=== PATIENT | male | born 1960 | race African-American/Black ===

== ENCOUNTER 2017-09-19 17:33 | Inpatient (IN) | payer OTHER ==
[2017-09-19 18:27] LABS: #Lymphocytes 1.2 thou/uL (1.20-3.40); #Monocytes 0.7 thou/uL (0.11-0.59); #Neutrophils 4.5 thou/uL (1.40-6.50); %Basophils 0.3 % (0.0-1.0); %Eosinophils 0.2 % (0.0-10.0); %Monocytes 10.9 % (0.0-10.0); %Neutrophils 69.6 % (42.0-75.0); Hemoglobin 16.1 g/dL (14.0-18.0); Mean Corpuscular HGB CONC 31.7 g/dL (32.0-36.0); Mean Platelet Volume 7.6 fL (7.4-10.4); Platelet Count 173 thou/uL (130-400); Red Blood Cell (RBC) Count 5.03 mill/uL (4.70-6.10); White Blood Cell (WBC) Count 6.4 thou/uL (4.8-10.8)
[2017-09-19 18:56] LABS: ALT (SGPT) 11 U/L (8-55); AST (SGOT) 23 U/L (5-34); Albumin 3.1 g/dL (3.5-5.0); Alkaline Phosphatase 50 U/L (40-150); Anion Gap 11 mmol/L (10-20); BUN (Urea Nitrogen) 13 mg/dL (8.4-25.7); Bilirubin, Total 0.2 mg/dL (0.2-1.2); CK (CPK) 94 U/L (30-200); Calc. Creatinine Clearance 0 mL/min (70-130); Calcium 7.9 mg/dL (7.8-10.44); Carbon Dioxide 23 mmol/L (22-29); Chloride 101 mmol/L (98-107); Estimated GFR-MDRD Greater than 90; Glucose 93 mg/dL (70-105); Potassium 3.8 mmol/L (3.5-5.1); Protein, Total 6.1 g/dL (6.0-8.3); Sodium 131 mmol/L (136-145)
[2017-09-19 19:00] LABS: CKMB 0.5 ng/mL (0-6.6); Troponin I 0.033 ng/mL (< 0.028)
--- NOTE | 2017-09-19 20:09 | RAD ---
CHEST ONE VIEW 09/09/17 HISTORY: Chest pain. Dyspnea. COMPARISON: 07/02/13. FINDINGS: Cardiac silhouette is upper limits of normal in size. Pulmonary vasculature is also upper limits of n ormal. Reticulonodular interstitial prominence is more pronounced at the bases than in the upper lobe s. No evidence of pneumothorax or lobar consolidation. IMPRESSION: Coarsened interstitial pattern, reticulonodular, more pronounced at the lung bases. Findings are nons pecific and could represent an atypical infectious process, chronic inflammation, or fibrotic lung di sease of the lung bases. POS: [facility]
[2017-09-19] MEDS ORDERED: methylPREDNISolone Sod Succ/PF 125 MG/2 ML VIAL ONE (20:34)
[2017-09-19 20:53] LABS: Bilirubin Negative (Negative); Blood, Urine Negative (Negative); Clarity CLEAR (Clear); Glucose, Urine (Dipstick) Negative (Negative); Leukocyte Negative (Negative); Nitrite Negative (Negative); Protein, Urine (Dipstick) Negative (Neg-Trace)
--- NOTE | 2017-09-19 20:55 | CT ---
CT CHEST WITH IV CONTRAST: 09/09/17 HISTORY: Cough. Chest pain. FINDINGS: Airway is patent. No lobar consolidation. Lungs are hyperinflated with scattered areas of parenchymal scarring. No evidence of central pulmonary embolus. Calcifications present within the arterial struc tures. There is bovine origin of the great vessels from the aortic arch. Nodule at the right lateral costophrenic angle is 0.4 cm. A 0.8 cm nodule is present within the superior segment right lower lobe . A 0.5 cm nodule is present within the medial segment right middle lobe. Left lower lobe nodules shravan sure up to 0.6 cm. No pleural fluid, pneumothorax, or mediastinal adenopathy. IMPRESSION: 1. COPD. 2. Small bilateral parenchymal nodules as detailed above. Please consider CT chest in 6 months t o evaluate for stability. 3. Atherosclerosis. POS: [facility]
[2017-09-19] MEDS ORDERED: Acetaminophen 325 MG TAB PO PRN (21:39)
[2017-09-19] MEDS ORDERED: Ondansetron ODT 4 MG TAB SL PRN (21:39)
[2017-09-19] MEDS ORDERED: Ondansetron HCl/PF 4 MG/2 ML Vial IVP PRN (21:39)
[2017-09-19 21:44] VITALS: BMI 24.7
[2017-09-19 22:09] LABS: Troponin I 0.035 ng/mL (< 0.028)
[2017-09-20 00:46] LABS: Troponin I 0.033 ng/mL (< 0.028)
[2017-09-20] MEDS ORDERED: FLU VACC QS2017-18 36 mo. & older 0.5 ML SYRINGE IM ONE (09:00)
[2017-09-20] MEDS ORDERED: Meloxicam 15 MG TAB PO SCH (09:15)
[2017-09-20] MEDS ORDERED: Oseltamivir 75 MG CAP PO SCH (09:15)
[2017-09-20] MEDS: Meloxicam 15 MG TAB PO SCH (09:33)
[2017-09-20] MEDS: traMADol HCl 50 MG TAB PO PRN ×2 (09:33→16:30)
[2017-09-20] MEDS: Sodium Chloride 0.9% 1,000 ML IV SCH ×2 (09:35→22:59)
[2017-09-20] MEDS ORDERED: Guaifenesin DM 100-10/5 ML UDCUP PO PRN (13:53)
[2017-09-20] MEDS: Temazepam 15 MG CAP PO SCH (20:51)
[2017-09-20] MEDS: Oseltamivir 75 MG CAP PO SCH (20:51)
--- NOTE | 2017-09-21 06:49 | HP ---
DATE OF ADMISSION: 09/19/2017 REASON FOR ADMISSION AND CHIEF COMPLAINT: Cough, shortness of breath, fever, right-sided chest pain. HISTORY OF PRESENT ILLNESS: Mr. Prado is a 57-year-old -[place] male with past medical hist ory of chronic back pain, came because of fever and also shortness of breath and cough, going on for the last 2 to 3 days. The patient also has a sharp pain in the right side of the chest, not associat ed with any diaphoresis, no nausea or vomiting. The patient does have cough productive of yellow spu luna and temperature of 101 at home. The patient came to the ER where he was evaluated and found to h ave influenza B infection and also evidence of bronchitis. The patient received DuoNeb treatments an d Solu-Medrol, Levaquin, aspirin, and IV fluids. His troponin was indeterminate. PAST MEDICAL HISTORY: Chronic back pain, shoulder pain, insomnia. PAST SURGICAL HISTORY: Nothing significant. CURRENT MEDICATIONS: The patient is on tramadol 50 q.i.d. p.r.n., Restoril 15 mg at bedtime p.r.n. ALLERGIES: No known drug allergies. FAMILY HISTORY: Nothing of interest. SOCIAL HISTORY: The patient lives alone. No history of alcohol. He smokes 1 pack a day and has bee n smoking for many years. REVIEW OF SYSTEMS: Cardiovascular: Has right-sided chest pain with shortness of breath. Respirator y: Has cough and fever. Gastrointestinal: No nausea, vomiting, no abdominal pain. Genitourinary: No dysuria. Central nervous system: No headache, no dizziness. PHYSICAL EXAMINATION: GENERAL: The patient is alert, awake, oriented x3. VITAL SIGNS: Temperature 98, pulse 87, respirations 20, blood pressure 117/60. HEENT: Head is normocephalic, atraumatic. Pupils are equal and reactive to light. Nasopharynx is p ink and moist. NECK: Supple. No JVD. LUNGS: Breath sounds diminished bilaterally. Percussion not dull bilaterally. Rhonchi present bila terally. HEART: S1, S2 regular. ABDOMEN: Soft, no distention, no tenderness. Normal bowel sounds present. RECTAL: Deferred. CENTRAL NERVOUS SYSTEM: No focal deficit. LABORATORY DATA AND X-RAY FINDINGS: CBC shows WBC 6.4, hemoglobin 16, hematocrit 50, platelets 173. Metabolic panel: Sodium 130, potassium 3.8, chloride 101, CO2 of 23, urea nitrogen 13, creatinine 0 .77, glucose 93,, CK-MB 0.5, troponin I 0.033. Urinalysis negative. Chest x-ray shows coarsened int erstitial and reticular nodular pattern seen. CT angio chest revealed no evidence of pulmonary embol ism. It showed COPD changes seen with evidence of scarring. EKG shows normal sinus rhythm, no acute ST-T wave changes seen. ASSESSMENT: 1. Influenza B infection. 2. Bronchitis versus chronic obstructive pulmonary disease exacerbation. 3. Fever. 4. Multiple pulmonary nodules on CT scan. 5. Chronic pain. 6. Tobacco abuse. 7. Elevated troponin I, rule out myocardial infarction. PLAN: 1. Vital signs q.4 hours. 2. Activity as tolerated. 3. Allergies: NKDA. 4. IV fluids normal saline at 70 mL per hour. 5. Solu-Medrol 20 IVP q.6 hours. 6. Levaquin 750 daily IV piggyback. 7. DuoNebs q.i.d. 8. Tamiflu 75 b.i.d. 9. Continue home medications.
[2017-09-21] MEDS: Oseltamivir 75 MG CAP PO SCH ×2 (09:42→20:25)
[2017-09-21] MEDS: Meloxicam 15 MG TAB PO SCH (09:42)
[2017-09-21] MEDS: traMADol HCl 50 MG TAB PO PRN (16:34)
[2017-09-21] MEDS: Sodium Chloride 0.9% 1,000 ML IV SCH (20:04)
[2017-09-21] MEDS: Temazepam 15 MG CAP PO SCH (20:25)
[2017-09-22] MEDS: Sodium Chloride 0.9% 1,000 ML IV SCH ×2 (05:04→17:30)
[2017-09-22] MEDS: Meloxicam 15 MG TAB PO SCH (08:08)
[2017-09-22] MEDS: Oseltamivir 75 MG CAP PO SCH ×2 (08:08→21:11)
--- NOTE | 2017-09-22 11:37 | CT ---
CT THORAX WITH CONTRAST: DATE: 09/22/17. TIME: 8:54 a.m. HISTORY: A 57-year-old male with chest pain, cough, and dyspnea. Emphysema. COMPARISON: Chest CT of 09/19/17. TECHNIQUE: IV iodinated contrast media: 100 mL of Isovue 370. FINDINGS: The images of the lower lobes are now degraded by breathing motion artifact. Again noted are the sev eral noncalcified pulmonary nodules bilaterally, right more than left. There has been no significant interval change. No consolidation. IMPRESSION: 1. Several noncalcified pulmonary nodules, right more than left. As previously stated, 6-month-old followup chest CT is recommended. 2. Moderate emphysema. 3. Coronary atherosclerotic disease. 4. No interval change overall compared to 3 days ago. MERARI Arizmendi POS: [facility]
[2017-09-22] MEDS: Temazepam 15 MG CAP PO SCH (21:12)
[2017-09-23] MEDS: Sodium Chloride 0.9% 1,000 ML IV SCH (09:18)
[2017-09-23] MEDS: Meloxicam 15 MG TAB PO SCH (09:23)
[2017-09-23] MEDS: Oseltamivir 75 MG CAP PO SCH (09:23)
[2017-09-23 16:15] VITALS: BP 149/90; TEMP 98.2
[2017-09-24] MEDS ORDERED: predniSONE 20 MG TAB PO SCH (09:00)
--- NOTE | 2017-09-25 11:05 | DIS ---
DATE OF ADMISSION: 09/19/2017 DATE OF DISCHARGE: 09/23/2017 ADMITTING DIAGNOSES: 1. Influenza B infection. 2. Bronchitis versus chronic obstructive pulmonary disease exacerbation. 3. Fever. 4. Multiple pulmonary nodules on CT scan. 5. Chronic pain. 6. Tobacco abuse. 7. Elevated troponin I, rule out myocardial infarction. FINAL DIAGNOSES: 1. Influenza B infection, treated. 2. Chronic obstructive pulmonary disease, improved. 3. Fever, resolved. 4. Multiple pulmonary nodules, possibly benign, stable. 5. Chronic pain. 6. Tobacco abuse. 7. Elevated troponin. No evidence of acute myocardial infarction. BRIEF SUMMARY OF HOSPITAL COURSE: Mr. Prado is a 57-year-old -Canadian male with past medica l history of chronic back pain, came because of high fever. The patient was found to have influenza B positive and also has chest wheezing with history of COPD exacerbation. He was started on IV Solu- Medrol, DuoNebs and IV antibiotic with Levaquin, Tamiflu was continued. In the next couple of days, the patient's shortness of breath improved. Fever resolved. His cough became much better. His CT c hest without contrast showed some nodules and CT of the chest done with contrast showed pulmonary nod ules, most likely benign. Repeat CT chest in 6 months for followup. In view of improvement, the [facility] ie is being discharged. At the time of discharge, he was stable. His vital signs were stable. Alma ngs clear. Abdomen: Soft, nontender. Bowel sounds present. DISCHARGE MEDICATIONS: Tramadol 50 q.i.d. p.r.n., Restoril 15 mg at bedtime, prednisone in tapering doses, Ventolin inhaler 2 puffs q.i.d., Maalox 15 mg daily, Levaquin 750 daily for 10 or 5 days, Angela flu b.i.d. for 2 days. The patient will come for followup in 2 weeks. The patient will have PFTs done as an outpatient.
== END 2017-09-23 16:30 | disposition home or self-care (01) | DRG 194 ==
LOC: ERS 17:33 → 2NO 19:55
PROVIDERS: ADMIT Internal Medicine; ATTEND Internal Medicine
DX: J10.1 Influenza due to other identified influenza virus with other respiratory manifestations (principal); J44.1 Chronic obstructive pulmonary disease with (acute) exacerbation; F17.210 Nicotine dependence, cigarettes, uncomplicated; R91.8 Other nonspecific abnormal finding of lung field; G89.29 Other chronic pain
CPT/HCPCS: 36415; 71045; 71260; 80053; 81003; 82553; 84145; 84484; 85025; 87040; 93005; 94640; 94760; 96361; 96365; 96375; A4216; J1956; J2920; J2930; J7620

== ENCOUNTER 2017-11-28 09:08 | Outpatient (CLI) | payer OTHER ==
--- NOTE | 2017-11-28 10:51 | RAD ---
3 VIEWS RIGHT SHOULDER: Date: 11/28/17 HISTORY: Right shoulder pain. FINDINGS: There is no evidence of a fracture or dislocation. There is a rounded osseous density seen inferior t o the distal clavicle. This was also present on prior chest x-ray in 2012. Recent CT scan examination demonstrates a corticated osseous density in this region as well, incompletely imaged or evaluated. I am unsure if this is related to small osseous excrescence arising from the distal clavicle or relat ed to a separate osseous density. There is mild right acromioclavicular joint osteoarthritis with irr egularity of the acromion. IMPRESSION: 1. No acute osseous abnormality of the right shoulder. 2. Mild right acromioclavicular joint osteoarthritis. 3. Stable osseous density seen inferior to the distal clavicle. This may be related to small osseous excrescence at the distal clavicle. There is mild irregularity involving the acromion as well. Findi ngs could be related to prior injury involving the acromioclavicular joint, but there is no acromiocl avicular joint separation present. POS: [facility]
== END 2017-11-28 09:09 | disposition home or self-care (01) ==
LOC: RAD-FRANK 09:08
PROVIDERS: ATTEND Internal Medicine
DX: M25.511 Pain in right shoulder (principal); M89.9 Disorder of bone, unspecified; M19.011 Primary osteoarthritis, right shoulder

== ENCOUNTER 2018-03-07 11:06 | Inpatient (IN) | payer OTHER ==
[2018-03-07 11:43] LABS: Hemoglobin 16.1 g/dL (14.0-18.0); Mean Corpuscular HGB CONC 33.9 g/dL (32.0-36.0); Mean Corpuscular Hemoglobin 33.3 pg (27.0-31.0); Mean Corpuscular Volume 98.2 fL (78.0-98.0); Mean Platelet Volume 7.3 fL (7.4-10.4); Platelet Count 266 thou/uL (130-400); RBC Distribution Width 13.1 % (11.5-14.5); Red Blood Cell (RBC) Count 4.83 mill/uL (4.70-6.10); White Blood Cell (WBC) Count 11.6 thou/uL (4.8-10.8)
[2018-03-07] MEDS ORDERED: cefTRIAXone\\ROCEPHIN 1 GM VIAL ONE (12:00)
[2018-03-07 12:09] LABS: ALT (SGPT) 12 U/L (8-55); AST (SGOT) 16 U/L (5-34); Albumin 3.4 g/dL (3.5-5.0); Alkaline Phosphatase 60 U/L (40-150); Anion Gap 15 mmol/L (10-20); BUN (Urea Nitrogen) 12 mg/dL (8.4-25.7); Bilirubin, Total 0.9 mg/dL (0.2-1.2); Calc. Creatinine Clearance 0 mL/min (70-130); Calcium 8.7 mg/dL (7.8-10.44); Carbon Dioxide 20 mmol/L (22-29); Chloride 100 mmol/L (98-107); Estimated GFR-MDRD Greater than 90; Globulin 3.6 g/dL (2.4-3.5); Glucose 133 mg/dL (70-105); Potassium 3.6 mmol/L (3.5-5.1); Sodium 131 mmol/L (136-145)
[2018-03-07 12:11] LABS: Band 20 % (5-11); Lymphocytes 12 % (21-51); MDiff Complete? YES; Monocytes 4 % (0-10); Neutrophil 62 % (42-75); PLT Morphology Comment Appears Adequate; RBC Morphology Normal; Reactive Lymphocytes 2 % (0-10)
[2018-03-07] MEDS ORDERED: Azithromycin 500 MG VIAL ONE (12:36)
--- NOTE | 2018-03-07 12:43 | RAD ---
CHEST 1 VIEW: Date: 03/07/18 HISTORY: Dyspnea. COMPARISON: 09/19/17. FINDINGS: Cardiac silhouette magnified by projection. Pulmonary vasculature upper limits of normal. Patchy bila teral air space disease has developed. Otherwise, reticulonodular interstitial prominence throughout each lung is stable. No evidence of pneumothorax. media monitor leads overlie the chest. IMPRESSION: Bibasilar mild infiltrates. Cause not evident. Clinical correlation regarding other signs and symptom s of acute pneumonitis at each lung base is required. Please consider upright PA and lateral view fol low-up after medical treatment to evaluate for clearing. POS: [facility]
[2018-03-07 13:14] LABS: CKMB 0.5 ng/mL (0-6.6); Troponin I 0.013 ng/mL (< 0.028)
[2018-03-07 14:52] VITALS: BMI 24.1
[2018-03-07] MEDS ORDERED: traMADol HCl 50 MG TAB PO PRN (20:45)
[2018-03-07] MEDS: Temazepam 15 MG CAP PO SCH (21:34)
--- NOTE | 2018-03-08 03:26 | HP ---
DATE OF ADMISSION: 03/07/2018 REASON FOR ADMISSION AND CHIEF COMPLAINT: Shortness of breath and cough. HISTORY OF PRESENT ILLNESS: Mr. Prado is a 58-year-old -[place] male with past medical history of COPD and chronic back pain, who came in because of generalized weakness, not eating well, and cough and shortness of breath for a few days. All symptoms started 5 days ago. Cough is productive with yellow sputum, myalgias, and low-grade fever of 100.4. The patient also gets chest pain during coughing episodes. So, he called the EMS, because he was not breathing well, coughing, and not eating for a few days. EMS found him with COPD exacerbation. He received Solu-Medrol and DuoNeb treatments on the way to the hospital. In the ER, the patient was evaluated and found to have possible pneumonia bilaterally. The patient received a dose of Rocephin and azithromycin. The patient was admitted to the hospital for further evaluation and management. PAST MEDICAL HISTORY: 1. COPD. 2. Chronic back pain and chronic shoulder pain. 3. History of insomnia. PAST SURGICAL HISTORY: Nothing significant. CURRENT MEDICATIONS: Tramadol 50 q.i.d. p.r.n., Ventolin inhaler 2 puffs q.i.d. , and Restoril 15 at bedtime p.r.n. ALLERGIES: No known drug allergies. FAMILY HISTORY: Nothing of interest. SOCIAL HISTORY: The patient lives with family. No history of alcohol intake. He smokes 1 pack a day. REVIEW OF SYSTEMS: Cardiovascular: No chest pain. No shortness of breath. Respiratory: Denies cough or fever. Gastrointestinal: No nausea, vomiting, no abdominal pain. Genitourinary: No dysuria. Central nervous system: No headache, no dizziness. PHYSICAL EXAMINATION: GENERAL: The patient is alert, awake, and oriented x3. VITAL SIGNS: Temperature 97, pulse 78, respirations 20, blood pressure 116/80. HEENT: Head is normocephalic, atraumatic. Pupils are equal and reactive to light. Nasopharynx is pale and dry. Hard and soft palate, no lesions seen. SKIN: Turgor is decreased. NECK: Supple. No JVD. LUNGS: Breath sounds diminished bilaterally. Percussion not dull bilaterally. Expiratory wheeze present bilaterally. HEART: S1 and S2, regular. ABDOMEN: Soft, no distention, no tenderness. Normal bowel sounds present. RECTAL EXAM: Deferred. CENTRAL NERVOUS SYSTEM: No focal deficits. LABORATORY AND X-RAY FINDINGS: CBC shows WBC of 7.6, hemoglobin 16, hematocrit 47, platelets 266. Metabolic panel: Sodium 130, potassium 3.6, chloride 110, CO2 of 20, BUN 12, creatinine glucose 133, CK-MB 0.5, troponin I 0.013. Chest x-ray shows bibasilar infiltrates, possible pneumonitis versus pneumonia. EKG shows normal sinus rhythm, no acute ST-T-wave changes seen. ASSESSMENT: 1. Possible pneumonia. 2. Chronic obstructive pulmonary disease acute exacerbation. 3. Anorexia. 4. Pulmonary nodules. 5. Back pain. PLAN: 1. Vital signs q.4 hours. 2. Activity: As tolerated. 3. Allergies: NKDA. 4. DuoNeb q.i.d. 5. Rocephin 1 gram IV piggyback daily. 6. Zithromax 500 mg IV piggyback daily. 7. Continue home medication. 8. Solu-Medrol 20 IVP q.6 hours. MTDD
[2018-03-08] MEDS: guaiFENesin ER 600 MG TAB PO SCH ×2 (09:26→20:57)
[2018-03-08] MEDS: cefTRIAXone\\ROCEPHIN 1 GM in Sodium Chloride 0.9% 100 ML IVPB SCH (12:48)
[2018-03-08] MEDS: Azithromycin 500 MG in Sodium Chloride 0.9% 250 ML 250 ML IVPB SCH (14:55)
[2018-03-08] MEDS: Temazepam 15 MG CAP PO SCH (20:57)
[2018-03-09] MEDS: guaiFENesin ER 600 MG TAB PO SCH ×3 (07:52→21:01)
[2018-03-09] MEDS: cefTRIAXone\\ROCEPHIN 1 GM in Sodium Chloride 0.9% 100 ML IVPB SCH (12:43)
[2018-03-09 13:33] LABS: Hemoglobin 14.3 g/dL (14.0-18.0); Mean Corpuscular HGB CONC 32.4 g/dL (32.0-36.0); Mean Corpuscular Hemoglobin 32.2 pg (27.0-31.0); Mean Corpuscular Volume 99.2 fL (78.0-98.0); Mean Platelet Volume 7.3 fL (7.4-10.4); Platelet Count 344 thou/uL (130-400); Red Blood Cell (RBC) Count 4.45 mill/uL (4.70-6.10); White Blood Cell (WBC) Count 15.8 thou/uL (4.8-10.8)
[2018-03-09 13:48] LABS: Anion Gap 13 mmol/L (10-20); BUN (Urea Nitrogen) 16 mg/dL (8.4-25.7); Calc. Creatinine Clearance 116 mL/min (70-130); Calcium 9.2 mg/dL (7.8-10.44); Carbon Dioxide 24 mmol/L (22-29); Chloride 105 mmol/L (98-107); Estimated GFR-MDRD Greater than 90; Glucose 111 mg/dL (70-105); Potassium 4.4 mmol/L (3.5-5.1); Sodium 138 mmol/L (136-145)
--- NOTE | 2018-03-09 13:48 | PRG ---
DATE OF SERVICE: 03/09/2018 This is a cross coverage note. SUBJECTIVE: A 58-year-old gentleman being seen for pneumonia. Patient denies any nausea, vomiting o r chest pain, but still has a cough as well as heartburn-like symptoms. The patient denies chest arlene n, orthopnea or PND. Denies any swelling in his leg. MEDICATIONS: List reviewed. REVIEW OF SYSTEMS: Three point review of systems was performed and negative except all noted above. General: Weakness-. Head: Headache-. Neck: No swelling or lumps. Nose: No epistaxis or dischar ge. Eyes: No diplopia or pain. Respiratory: Dyspnea-. Cardiovascular: Chest pain-. Gastrointes tinal: Nausea-. Genitourinary/Gynecology: Hematuria-. Musculoskeletal: No joint pain. Neuropsyc hiatric Systems: No suicidal ideation. No ideation. Skin: Denies any rash or ulcer. Constitution al: No fever or chills. PHYSICAL EXAMINATION: GENERAL: Patient is awake, alert. VITAL SIGNS: Afebrile, pulse 90, breathing 16, blood pressure 112/75. GENERAL APPEARANCE AND MENTAL STATUS: Fair. HEAD/NECK: Normocephalic. Atraumatic. EYES: EOMI. No deformity. EARS: Clear. No ulcers. NOSE: Intact. No lesions. MOUTH: Clear. No discharge. THROAT: Clear. No exudate. LUNGS: Clear. No crackles. CARDIAC: S1, S2. No rub. ABDOMEN: Benign. BS+. GENITALIA/RECTUM: Foster absent. BACK/EXTREMITIES: Edema 0+ Ulcer- NEUROLOGICAL: Alert and motor intact. SKIN: Rash- Bruise- LYMPHATICS: Edema- Ulcer- LABORATORY DATA: Pending. ASSESSMENT AND PLAN: 1. Pneumonia. Continue ceftriaxone. 2. Hyponatremia, recheck labs. 3. Metabolic acidosis. Check labs. 4. Abnormal chest x-ray. Repeat chest x-ray PA and lateral. 5. Gastroesophageal reflux disease like symptoms. Start the patient on Nexium 40 mg daily. The patient will need pulmonary consultation. The patient will be covered the rest of the day by Dr. Snow.
[2018-03-09 13:52] LABS: Band 9 % (5-11); Lymphocytes 2 % (21-51); MDiff Complete? YES; Monocytes 4 % (0-10); Neutrophil 85 % (42-75); PLT Morphology Comment Appears Adequate
[2018-03-09] MEDS: Azithromycin 500 MG in Sodium Chloride 0.9% 250 ML 250 ML IVPB SCH (14:30)
--- NOTE | 2018-03-09 14:56 | RAD ---
2 VIEWS CHEST: Date: 03/09/18 HISTORY: Cough. FINDINGS: PA and lateral views of chest obtained. Mild areas of scarring seen in the right lung base. The lungs are well aerated. No evidence of acute intrathoracic abnormality seen. No evidence of effusions, pne umonia, or pneumothorax seen. IMPRESSION: Mild areas of right lower lobe atelectasis or scar. No other acute intrathoracic abnormality seen. POS: [facility]
[2018-03-09] MEDS: Temazepam 15 MG CAP PO SCH (20:59)
[2018-03-10] MEDS: guaiFENesin ER 600 MG TAB PO SCH ×2 (05:39→15:59)
[2018-03-10 08:07] VITALS: BP 125/78; TEMP 97.7
[2018-03-10] MEDS: cefTRIAXone\\ROCEPHIN 1 GM in Sodium Chloride 0.9% 100 ML IVPB SCH (11:58)
[2018-03-10] MEDS ORDERED: Amoxicillin/Potassium Clav 875 MG TAB PO SCH (21:00)
[2018-03-11] MEDS ORDERED: predniSONE 20 MG TAB PO SCH (09:00)
--- NOTE | 2018-03-11 15:35 | DIS ---
DATE OF ADMISSION: 03/07/2018 DATE OF DISCHARGE: 03/10/2018 ADMITTING DIAGNOSES: 1. Possible pneumonia. 2. Chronic obstructive pulmonary disease with acute exacerbation. 3. Anorexia. 4. Pulmonary nodules. 5. Back pain. FINAL DIAGNOSES: 1. No clear evidence of pneumonia. 2. Chronic obstructive pulmonary disease with acute exacerbation, improved. 3. Anorexia, improved. 4. Pulmonary nodules. 5. Chronic back pain. BRIEF SUMMARY OF HOSPITAL COURSE: Mr. Prado is a 58-year-old -[place] male admitted because of cough, congestion, shortness of breath, and not eating well. The patient was found to have COPD exacerbation, and initial chest x-ray was reported as pneumonitis and pneumonia. He was started on a ntibiotic with Rocephin and Zithromax. The patient was also started on Solu-Medrol and DuoNeb treatm ent. His shortness of breath improved. His cough became less. Chest wheezing resolved. A repeat c hest x-ray 2-view revealed mild areas of right lower lobe atelectasis versus scar. Otherwise, no oth er acute intrathoracic abnormalities seen. In view of improvement, the patient is discharged. At th e time of discharge, he was stable. His vital signs were stable. Lungs are clear. Heart sounds reg ular. Abdomen: Soft, nontender. Bowel sounds present. DISCHARGE MEDICATIONS: Include tramadol 50 q.i.d. p.r.n., temazepam 15 at bedtime, Ventolin inhaler 2 puffs q.i.d., Augmentin 875 b.i.d. for 1 week, Mucinex 600 b.i.d. for 1 week, omeprazole 40 mg william y, prednisone 40 mg daily and tapering dose. FOLLOWUP: He will come for followup in 2 weeks.
== END 2018-03-10 17:30 | disposition home or self-care (01) | DRG 190 ==
LOC: ERS 11:06 → T4-B 14:46
PROVIDERS: ADMIT Internal Medicine; ATTEND Internal Medicine
DX: J44.0 Chronic obstructive pulmonary disease with (acute) lower respiratory infection (principal); J18.9 Pneumonia, unspecified organism; E87.1 Hypo-osmolality and hyponatremia; E87.2 Acidosis; J44.1 Chronic obstructive pulmonary disease with (acute) exacerbation; G89.29 Other chronic pain; M54.9 Dorsalgia, unspecified; R63.0 Anorexia; K21.9 Gastro-esophageal reflux disease without esophagitis; R91.1 Solitary pulmonary nodule; Z79.51 Long term (current) use of inhaled steroids; Z79.899 Other long term (current) drug therapy
CPT/HCPCS: 36415; 71045; 71046; 80048; 80053; 82553; 83605; 84484; 85025; 87040; 90471; 90732; 93005; 94640; 94760; 96365; A4216; G0009; J0456; J0696; J2920; J7050; J7620

== ENCOUNTER 2018-03-28 09:07 | Inpatient (IN) | payer OTHER ==
[2018-03-28 09:42] LABS: #Basophils 0.1 thou/uL (0.0-0.2); #Eosinphils 0.4 thou/uL (0.0-0.7); #Lymphocytes 2.7 thou/uL (1.20-3.40); #Monocytes 0.7 thou/uL (0.11-0.59); #Neutrophils 5.8 thou/uL (1.40-6.50); %Basophils 0.9 % (0.0-1.0); %Eosinophils 4.1 % (0.0-10.0); %Lymphocytes 27.8 % (21.0-51.0); %Monocytes 7.5 % (0.0-10.0); %Neutrophils 59.7 % (42.0-75.0); Hemoglobin 15.3 g/dL (14.0-18.0); Mean Corpuscular HGB CONC 32.5 g/dL (32.0-36.0); Mean Corpuscular Hemoglobin 32.4 pg (27.0-31.0); Mean Corpuscular Volume 99.6 fL (78.0-98.0); Mean Platelet Volume 6.9 fL (7.4-10.4); Platelet Count 237 thou/uL (130-400); RBC Distribution Width 14.9 % (11.5-14.5); Red Blood Cell (RBC) Count 4.71 mill/uL (4.70-6.10); White Blood Cell (WBC) Count 9.8 thou/uL (4.8-10.8)
[2018-03-28 10:08] LABS: ALT (SGPT) 131 U/L (8-55); AST (SGOT) 86 U/L (5-34); Albumin 3.5 g/dL (3.5-5.0); Alkaline Phosphatase 80 U/L (40-150); Anion Gap 14 mmol/L (10-20); BUN (Urea Nitrogen) 17 mg/dL (8.4-25.7); Bilirubin, Total 1.3 mg/dL (0.2-1.2); Calc. Creatinine Clearance 0 mL/min (70-130); Calcium 8.6 mg/dL (7.8-10.44); Carbon Dioxide 22 mmol/L (22-29); Chloride 105 mmol/L (98-107); Estimated GFR-MDRD Greater than 90; Globulin 2.7 g/dL (2.4-3.5); Glucose 99 mg/dL (70-105); Lipase Less than 4 U/L (8-78); Magnesium 1.9 mg/dL (1.6-2.6); Potassium 3.9 mmol/L (3.5-5.1); Protein, Total 6.2 g/dL (6.0-8.3); Sodium 137 mmol/L (136-145)
[2018-03-28 10:13] LABS: CKMB 2.5 ng/mL (0-6.6); Troponin I 0.022 ng/mL (< 0.028)
[2018-03-28] MEDS ORDERED: Furosemide 20 MG/2 ML VIAL ONE (10:51)
[2018-03-28] MEDS ORDERED: Nitroglycerin 2% Ointment 1 INCH/1 GM Packet ONE (10:51)
--- NOTE | 2018-03-28 11:04 | RAD ---
CHEST 1 VIEW: COMPARISON: 03/07/18. HISTORY: Pain. History of pneumonia and COPD. FINDINGS: Persistent changes in the lung bases which may be chronic. A superimposed infiltrate cannot be exclu ded. Stable aeration of the lung parenchyma. Stable hyperinflation. Stable cardiac silhouette. No pneumothorax. IMPRESSION: 1. Hyperinflation, chronic obstructive pulmonary disease. 2. Chronic change in lung parenchyma. Superimposed infiltrate in the lung bases cannot be excluded. Continued surveillance. POS: [facility]
[2018-03-28] MEDS ORDERED: Enalaprilat Dihydrate 1.25 MG/ML VIAL ONE (11:05)
[2018-03-28 11:23] LABS: Bilirubin Negative (Negative); Blood, Urine Negative (Negative); Clarity Clear (Clear); Glucose, Urine (Dipstick) Negative (Negative); Leukocyte Negative (Negative); Nitrite Negative (Negative); Protein, Urine (Dipstick) Negative (Neg-Trace); Specific Gravity, Urine 1.015 (1.005-1.030); Urobilinogen 0.2 mg/dL (0.2-1.0)
[2018-03-28 11:34] LABS: Amphetamine Not Detected (NotDetected); Barbiturates Screen Not Detected (NotDetected); Benzodiazepine Screen Detected (NotDetected); Cocaine Metabolite Screen Detected (NotDetected); Medtox Control Line Valid? VALID (VALID); Medtox Reader # READER 4; Methadone Not Detected (NotDetected); Methamphetamine Not Detected (NotDetected); Opiate Screen Not Detected (NotDetected); Oxycodone Screen Not Detected (NotDetected); Phencyclidine (PCP) Not Detected (NotDetected); THC/Cannabinoid Screen Not Detected (NotDetected); Tricyclic Screen Not Detected (NotDetected)
[2018-03-28 13:10] LABS: Troponin I 0.021 ng/mL (< 0.028)
[2018-03-28] MEDS ORDERED: methylPREDNISolone Sod Succ/PF 125 MG/2 ML VIAL IVP SCH (17:45)
[2018-03-28 18:05] VITALS: BMI 25.3
[2018-03-28] MEDS ORDERED: traMADol HCl 50 MG TAB PO PRN (20:48)
[2018-03-28 21:25] LABS: Anion Gap 11 mmol/L (10-20); BUN (Urea Nitrogen) 16 mg/dL (8.4-25.7); Calc. Creatinine Clearance 101 mL/min (70-130); Calcium 8.8 mg/dL (7.8-10.44); Carbon Dioxide 26 mmol/L (22-29); Chloride 103 mmol/L (98-107); Estimated GFR-MDRD Greater than 90; Glucose 118 mg/dL (70-105); Potassium 4.1 mmol/L (3.5-5.1); Sodium 136 mmol/L (136-145)
[2018-03-28] MEDS: guaiFENesin/DM ER PO SCH (22:58)
--- NOTE | 2018-03-29 03:25 | HP ---
DATE OF ADMISSION: 03/28/2018 REASON FOR ADMISSION AND CHIEF COMPLAINT: Shortness of breath. HISTORY OF PRESENT ILLNESS: Mr. Prado is a 58-year-old, -[place]ian male with past medical his tory of COPD and chronic back pain, came because of shortness of breath started 3 days ago. The [place] ent was recently in the hospital with COPD exacerbation and was discharged 2 weeks ago. The patient was doing well until 3 days ago, started having shortness of breath and some sharp pain in the left s jesus of the chest and the left lower rib area, not associated with any diaphoresis. No nausea or vomi ting. The patient also started having cough today after he came to the hospital and some chest wheez ing as well. His shortness of breath was getting worse. The patient came to the emergency room jeevan use of worsening shortness of breath. In the ER, the patient was evaluated and was found to have ke vated BNP of 2000, but the chest x-ray did not reveal any CHF. The patient was given Lasix in thinki ng about his CHF, and was given enalapril and nitro and DuoNebs as well, admitted for further evaluat ion and management. Currently, the patient states he has cough and chest wheezing, feels short of br eath. PAST MEDICAL HISTORY: 1. COPD. 2. Chronic back pain. 3. Insomnia. PAST SURGICAL HISTORY: Nothing significant. CURRENT MEDICATIONS: The patient is on Ventolin inhaler 2 puffs q.i.d., Restoril 15 mg at bedtime, p rednisone in tapering doses, tramadol p.r.n. ALLERGIES: No known drug allergies. FAMILY HISTORY: Nothing of interest. SOCIAL HISTORY: The patient lives with family. No history of alcohol intake. Smokes one pack a day . REVIEW OF SYSTEMS: Cardiovascular: Has chest pain and shortness of breath. Respiratory: Has cough . No fever. Gastrointestinal: No nausea or vomiting, no abdominal pain. Genitourinary: No dysuri a or hematuria. Central nervous system: No headache, no dizziness. PHYSICAL EXAMINATION: GENERAL: The patient is alert, awake, and oriented x3. VITAL SIGNS: Temperature is 97, pulse 90, respirations 20, blood pressure 120/90. HEENT: Head is normocephalic, atraumatic. Pupils are equal and reactive to light. Nasopharynx is p ink and moist. NECK: Supple. No JVD. LUNGS: Breath sounds diminished bilaterally. Percussion not dull bilaterally. Expiratory wheeze pr esent. CARDIOVASCULAR: S1, S2, regular. ABDOMEN: Soft, no distention, no tenderness. Normal bowel sounds present. RECTAL: Deferred. CENTRAL NERVOUS SYSTEM: No focal deficits. LABORATORY AND X-RAY FINDINGS: CBC shows WBC 9.8, hemoglobin 15, hematocrit 46, platelets 237. [place] bolic panel: Sodium 137, potassium 3.9, chloride 105, CO2 of 22, BUN 17, creatinine 0.7, glucose 99. CK-MB . Troponin I 0.022. BNP was 2035. Urinalysis negative. Urine toxicology screen posit jerson for benzodiazepine and cocaine. EKG shows sinus tachycardia with heart rate of 105, no acute ST- T wave changes seen. Chest x-ray shows COPD changes, chronic. No acute infiltrate seen. ASSESSMENT: 1. Questionable congestive heart failure with elevated BNP. 2. Chronic obstructive pulmonary disease with acute exacerbation. 3. Atypical chest pain, rule out myocardial infarction. 4. Cocaine abuse. 5. Tobacco abuse. 6. Chronic back pain. 7. Insomnia. PLAN: 1. Vital signs q.4 hours. 2. Activity: As tolerated. 3. Allergies: No known drug allergies. 4. Metoprolol. 5. Lasix 40 IVP q.a.m. 6. Solu-Medrol 125 bolus, then 20 IVP q.6 hours. 7. DuoNebs 1 unit q.i.d. 8. Continue home medications. 9. BNP tomorrow. 10. Cardiology consult. 11. Echocardiogram.
[2018-03-29 06:01] LABS: Anion Gap 13 mmol/L (10-20); BUN (Urea Nitrogen) 16 mg/dL (8.4-25.7); Calc. Creatinine Clearance 116 mL/min (70-130); Carbon Dioxide 24 mmol/L (22-29); Chloride 103 mmol/L (98-107); Estimated GFR-MDRD Greater than 90; Glucose 125 mg/dL (70-105); Potassium 4.2 mmol/L (3.5-5.1); Sodium 136 mmol/L (136-145)
[2018-03-29] MEDS ORDERED: Furosemide 40 MG/4 ML VIAL SLOW IVP SCH (09:00)
[2018-03-29] MEDS: guaiFENesin/DM ER PO SCH ×2 (09:19→21:33)
--- NOTE | 2018-03-29 12:47 | PQF ---
/ )CLINICAL DOCUMENTATION IMPROVEMENT CLARIFICATION FORM: ICD-10 Updated PLEASE DO AN ADDENDUM TO THE PROGRESS NOTE WITH ANY DOCUMENTATION UPDATES OR ADDITIONS AND CARRY THROUGH TO DC SUMMARY. THANK YOU. DATE: 03/29/18 ATTN: DR. WILD Please exercise your independent, professional judgment in responding to the clarification form. Clinical indicators are provided on the bottom of this form for your review Please check appropriate box(s): HEART FAILURE: A. TYPE: [ y ] Systolic / HFrEF [ ] Diastolic / HFpEF [ ] Combined Systolic / Diastolic B. ACUITY [ y] Acute [ ] Acute on Chronic [ ] Chronic [ ] Other diagnosis [ ] Unable to determine In addition, please specify: Present on Admission (POA): [ y ] Yes [ ] No [ ] Unable to determine For continuity of documentation, please document condition throughout progress notes and discharge summary. Thank You. CLINICAL INDICATORS - SIGNS / SYMPTOMS / LABS H&P 03/28: "QUESTIONABLE CONGESTIVE HEART FAILURE WITH ELEVATED BNP" BNP 03/28: 5.8 RISKS: H/O COPD (H&P 03/28) TOBACCO ABUSE (H&P 03/28) COCAINE ABUSE (H&P 03/28) TREATMENT: IV LASIX (ER-PRESENT) ECHOCARDIOGRAM CARDIOLOGY CONSULT TELEMETRY MONITORING (This form is maintained as a part of the permanent medical record) 2014 [employer] All Rights Reserved [email or web address] Office: [phone] [email or web address]
[2018-03-29] MEDS ORDERED: Lisinopril 5 MG TAB PO SCH (16:15)
--- NOTE | 2018-03-29 19:04 | CON ---
DATE OF CONSULTATION: 03/29/2018 ROOM NUMBER: [id number] PRIMARY CARE PHYSICIAN: John Snow M.D. PRIMARY CHANGE MANAGEMENT DIRECTOR: Denice Edwards M.D. REASON FOR CONSULTATION: New onset of CHF. HISTORY OF PRESENT ILLNESS: Mr. Prado is a 58-year-old male with significant past medical history of COPD secondary to long-term tobacco abuse, illicit drug abuse, chronic pain and in somnia. The patient was discharged about 2 weeks ago from the hospital due to chronic obstructive pu lmonary disease exacerbation and pneumonia. Since then he started eating TV dinner almost every day. Also, he did not watch his fluid and salt intake since then and like about 1 week ago he used one t bita cocaine use and he continues to smoke one to two pack a day and after that he was discharged from hospital about 2 weeks ago and about 3 days ago his shortness of breath getting worse and he also st arted having dyspnea on exertion, dizziness with breathing, abdominal bloating and heaviness feeling into the bilateral lower extremities. He also mentions that he could not lay flat on the spine and h e required at least 4-5 pillows to elevate his head of bed to sleep. [facility], he was found to have a BNP more than 2000. However, a chest x-ray did not reveal the patient had congestive heart failure. After the patient received Lasix IV. The patient's symptom has improved with the Lasix IV. During those episodes, the patient denied chest pain or discomfort, palpitation, fluttering in his chest, numbness, tingling or discomfort to his neck or left upper ext remities, nausea, vomiting or any other cardiac complaints. According to the patient, he never had c ardiac workup before and he just had an echocardiogram today and the result is pending at this moment . Initial Cardiology consult assessment, the patient denies shortness of breath, abdomen bloated, he aviness in bilateral lower extremities or any other cardiac complaints. He reported he feels comfort able lying flat at this moment. PAST MEDICAL HISTORY: COPD, insomnia, long history of 1-2 pack a day tobacco abuse, illicit drug abu se, especially cocaine use. He stopped using cocaine in July 2017 until this time. PAST SURGICAL HISTORY: 1. Tonsillectomy. 2. Right rotator cuff shoulder repair in 1999. FAMILY HISTORY: Mother has a history of diabetes, hypertension, and blood clots removed from the hea rt or lungs. The patient's brother has a history of diabetes. Otherwise, his family does not have s ignificant cardiac related history. SOCIAL HISTORY: The patient lives by himself. He has a good support system from his [employer]oroast[employer] and his family members. He denies alcohol abuse; however, he smoked 1-2 pack a day. Lately he smoked two pa ck a day and he stopped using illicit drug abuse, especially cocaine in July 2017 until couple of days ago. ALLERGIES: No known drug allergies. CURRENT MEDICATIONS: Tramadol 50 mg 4 times a day as needed, Restoril 50 mg once a day at night, Haseeb tolin 2 puffs every 6 hours as needed, guaifenesin 600 mg twice a day, prednisone 40 mg once a day, o meprazole 40 mg once a day. REVIEW OF SYSTEMS: A 12-point review of systems was negative, unless otherwise mentioned in the HPI. The patient wears upper and lower dentures. PHYSICAL EXAMINATION: VITAL SIGNS: Blood pressure 115/78, heart rate 96, respiratory rate 20, O2 sat 97% with room air. GENERAL: The patient is alert, oriented x4. HEENT: Normocephalic, atraumatic. EYES: Extraocular muscle movement intact. ENT: Oral and nasal mucosa are moist without lesion. NECK: Supple. No JVP. Normal range of motion. RESPIRATORY: Lungs clear to auscultation bilaterally, but diminished at the bases. CARDIOVASCULAR: Regular rate and rhythm. Normal S1, S2. No S3, S4 and have a significant murmur to the left mediastinal border. He did have 2+ pulses in the bilateral lower extremities. Carotid pul ses are present. No bruit or thrill noted. ABDOMEN: Soft, nontender or mass to palpate. Positive bowel sounds. MUSCULOSKELETAL: The patient able to move all extremities. SKIN: No lesion, bruise, erythema noted. PSYCHIATRIC: Patient alert, oriented x4, nonfocal. EKG: The patient's 12-lead EKG in the ER showed sinus tachycardia with heart rate 105. LVH, T-wave inversion in lead V1, V2 and V6. LABORATORY DATA: WBC 9.8, hemoglobin 15.3, hematocrit 46.9, platelet 237. Sodium 136, potassium 4.2 , creatinine 0.75, glucose 125, CK-MB 2.5, troponin 0.022, 0.021 and 0.030 and BNP is in 2034.8. Pos itive for benzodiazepines and cocaine. The patient's chest x-ray revealed hyperinflation which means chronic COPD and coronary change in the lungs, but no pneumothorax or pneumonia. ASSESSMENT AND PLAN: 1. New onset congestive heart failure. The patient's echo result is pending at this moment, the pat ient's condition is improved very well with Lasix IV 40 mg once a day. We would like to change this medication to p.o. from tomorrow and also we would like to start FLOR inhibitor or ARBs for this patie nt. 2. COPD. The patient's breathing is stable at this moment with room air. We will defer to the [facility] doctor or animal assistant. 3. Illicit drug and tobacco abuse, illicit drug cessation and tobacco abuse cessation education was given to the patient. Thank you very much for allowing the Cardiology service to participate in the care of this patient. We will follow along with the patient care team and make recommendation as appropriate.
--- NOTE | 2018-03-29 19:25 | CON ---
DATE OF CONSULTATION: 03/29/2018 DATE OF ADMISSION: 03/28/2018 INDICATION FOR CONSULTATION: A 58-year-old patient of Dr. Snow, who has new onset congestive h eart failure. Please refer to the notes already dictated by the nurse practitioner. Mr. Prado is a very unfortunate 58-year-old gentleman who says he was diagnosed several weeks ago was COPD. He con tinued to have worsening shortness of breath. He denied any significant edema, but apparently did dahl ve some ankle edema on this admission. He presented to the hospital and was found to be what appear to be congestive heart failure. His chest x-ray shows some chronic changes, but no gross congestion was noted. He does have hyperinflation compatible with his COPD. His BNP; however, was significantl y elevated over 1999 on admission. His cardiac enzymes were unremarkable, does not appear to have ev idence of myocardial infarction. He denied any chest pain. He mainly only had the shortness of awa th. He does have a history of illicit drug use, including cocaine and he still remains positive on t he drug screen at this admission for cocaine also. He continues to smoke a half to 1 pack of cigaret paris a day and has done so for many years. He said he just recently stopped. He says he has not used any cocaine for about 2 weeks. He had an echocardiogram performed today, which shows ejection fract ion of 20%-25% with global hypokinesis and 1 in some left ventricular dilatation. At this time, he d enies chest pain and is relatively comfortable after he has diuresed approximately he is only negativ e 164 mL. He denied any chest pain and appears to be very comfortable at this time. For his past medical history, social history, family history, review of systems, medications, please refer to notes dictated by the nurse practitioner. PHYSICAL EXAMINATION: GENERAL: Reveals a well-developed, well-nourished gentleman who is in no acute distress at this time . VITAL SIGNS: Blood pressure 115/78, heart rate is in the 90s and shows a sinus rhythm. Respiratory rate is about 18, O2 saturation 97% on room air. He is afebrile. HEENT: Reveals the head to be normocephalic and atraumatic. Carotid pulses are present. There were no bruits. CHEST: Clear to auscultation. I did not hear any rales, rhonchi or wheezing. Breath sounds are pao ewhat distant, however. CARDIOVASCULAR: Exam reveals a regular rhythm. He has an S1, S2. He also has an S3 compatible with his congestive heart failure. I did not hear any significant murmurs, heaves, thrills, bruits or ru bs. ABDOMEN: Soft, flat, nontender. Positive bowel sounds are present. EXTREMITIES: Show no clubbing, cyanosis or edema. Pedal pulses are present. NEUROLOGICAL: He appears to be fully intact. He has normal strength and tone. SKIN: Warm and dry. LABORATORY DATA: Shows a troponin I of 0.02, increased to 0.03. His ALT was 131, AST is 86, elevate d BNP was over 2000, this is improved now and it is down to 1392. Blood sugar is also elevated at 12 5. His renal function appears to be normal with creatinine 0.75, hemoglobin was 15.3. IMPRESSION: 1. Newly diagnosed congestive heart failure which is systolic in nature. This is acute episode, but most likely is chronic and I would suspect is due to previous drug use with his cocaine. Once he be come stable, I would suggest he undergo cardiac catheterization a definitive tool to rule out evidenc e for underlying coronary artery disease. If there is none found, he will need to be treated medical ly for his cardiomyopathy. He will need to have a LifeVest prior to discharge and if does not improv e after 90 days and will be a candidate for an implantable defibrillator if there is no significant c oronary artery disease found on cardiac catheterization. 2. History of elevated blood sugars. This will be dealt with by the primary care service. 3. History of drug abuse and tobacco abuse. He will absolutely need to stop both of these illicit d rug use and also tobacco. I will be more than happy to continue to follow the patient with you, but unfortunately his ejection fraction today shows ejection fraction of 20%-25% with left ventricular dilatation and a significant cardiomyopathy.
[2018-03-30] MEDS: Furosemide 40 MG TAB PO SCH (07:53)
[2018-03-30] MEDS: Lisinopril 5 MG TAB PO SCH (08:47)
[2018-03-30] MEDS: guaiFENesin/DM ER PO SCH ×2 (08:47→21:00)
--- NOTE | 2018-03-30 17:17 | PDOC.CTH ---
<Norma Robles - Last Filed: 03/30/18 17:14> Cardiology Progress Note - Subjective The pt seen and examined. No overnight events. No cardiac complaints. - Objective Vital Signs Temp Pulse Resp BP BP Pulse Ox 03/30/18 16:48 93 L 03/30/18 16:15 97.5 F L 92 16 133/80 93 L 03/30/18 15:22 90 12 03/30/18 12:50 98.6 F 97 18 118/73 92 L 03/30/18 12:03 92 L 03/30/18 11:12 89 12 03/30/18 08:47 84 108/75 03/30/18 07:15 98.1 F 84 18 108/75 95 03/30/18 06:45 90 12 Weight 171 lb 4.8 oz 03/29/18 03/30/18 03/31/18 06:59 06:59 06:59 Intake Total 1086 1326.5 Output Total 1250 2175 Balance -164 -848.5 - Physical Examination General/Neuro: alert & oriented x3 Neck: no JVD present Lungs: CTA Heart: RRR Abdomen: soft Extremities: other: (No BLE edema) - Telemetry Telemetry Rhythm: SR - Labs Result Diagrams: 03/28/18 09:34 03/29/18 05:19 Troponin/CKMB CK-MB (CK-2) 2.5 ng/mL (0-6.6) 03/28/18 09:34 Troponin I 0.030 ng/mL (< 0.028) H 03/28/18 15:52 - Assessment/Plan 1. New onset systolic HF - EF 20-25%; On Lasix Po and Lisinopril, but no Bblocker due to hx of COPD 2. COPD - stable with RA 3. DM type 2 - ACHS blood glucose check with SS Insulin 4. Tobacco and Illicit drug abuse - Smoking and Illicit drug cessation education given to the pt. MAR reviewed * Echo on 03/29/18 showed EF 20-25%, mod LV, mildly dilated LA, mild MR, mild AR , mild TR. * Possible cardiac cath on 04/01/18 Review of Systems - Review of Systems Constitutional: reports: no symptoms reported EENTM: reports: no symptoms reported Respiratory: reports: no symptoms reported Cardiac (ROS): reports: no symptoms reported ABD/GI: reports: no symptoms reported : reports: no symptoms reported Musculoskeletal: reports: no symptoms reported Skin: reports: no symptoms reported <Petra Edwards - Last Filed: 03/30/18 23:52> Cardiology Progress Note - Objective Vital Signs Temp Pulse Resp BP Pulse Ox 03/30/18 20:00 98.0 F 95 20 128/78 94 L 03/30/18 18:40 96 03/30/18 18:39 96 03/30/18 16:48 93 L 03/30/18 16:15 97.5 F L 92 16 133/80 93 L 03/30/18 15:22 90 12 03/30/18 12:50 98.6 F 97 18 118/73 92 L 03/30/18 12:03 92 L Weight 171 lb 4.8 oz 03/29/18 03/30/18 03/31/18 06:59 06:59 06:59 Intake Total 1086 1326.5 720 Output Total 1250 2175 1025 Balance -164 -848.5 -305 - Labs Result Diagrams: 03/28/18 09:34 03/29/18 05:19 Troponin/CKMB CK-MB (CK-2) 2.5 ng/mL (0-6.6) 03/28/18 09:34 Troponin I 0.030 ng/mL (< 0.028) H 03/28/18 15:52 - Assessment/Plan Pt. seen and evaluated by me.I agree with the A/P by the CONE WINDER.
[2018-03-30] MEDS: predniSONE 20 MG TAB PO SCH (21:01)
--- NOTE | 2018-03-30 21:57 | EKG ---
Test Reason : ERS.AV Blood Pressure : / mmHG Vent. Rate : 105 BPM Atrial Rate : 105 BPM P-R Int : 152 ms QRS Dur : 098 ms QT Int : 384 ms P-R-T Axes : 074 -06 112 degrees QTc Int : 507 ms Sinus tachycardia Biatrial enlargement Left ventricular hypertrophy Nonspecific T wave abnormality No STEMI Abnormal ECG Confirmed by AKHIL Oliver, MADELIN ([id number]), news videotape editor ANDI VILLASEÑOR ([id number]) on 03/30/2018 9:56:34 PM Referred By: ERMD Confirmed By:MADELIN LANDAVERDE M.D.
[2018-03-31 06:09] LABS: Anion Gap 11 mmol/L (10-20); BUN (Urea Nitrogen) 18 mg/dL (8.4-25.7); Calc. Creatinine Clearance 114 mL/min (70-130); Calcium 8.9 mg/dL (7.8-10.44); Carbon Dioxide 27 mmol/L (22-29); Chloride 104 mmol/L (98-107); Estimated GFR-MDRD Greater than 90; Glucose 105 mg/dL (70-105); Sodium 138 mmol/L (136-145)
[2018-03-31] MEDS: Furosemide 40 MG TAB PO SCH (10:04)
[2018-03-31] MEDS: Lisinopril 5 MG TAB PO SCH (10:04)
[2018-03-31] MEDS: guaiFENesin/DM ER PO SCH ×2 (10:04→21:07)
[2018-03-31] MEDS: predniSONE 20 MG TAB PO SCH ×2 (10:05→21:07)
--- NOTE | 2018-03-31 13:40 | PDOC.CTH ---
<Norma Robles - Last Filed: 03/31/18 14:04> Cardiology Progress Note - Subjective The pt seen and examined. No overnight events. No cardiac complaints. - Objective Vital Signs Temp Pulse Resp BP BP Pulse Ox 03/31/18 12:07 89 12 03/31/18 11:44 97.5 F L 99 17 134/82 93 L 03/31/18 10:04 85 134/86 03/31/18 07:46 97.9 F 85 19 96 03/31/18 07:42 97.9 F 85 19 134/86 96 03/31/18 07:01 88 12 03/31/18 04:00 97.8 F 99 20 139/96 H 95 Weight 172 lb 8 oz 03/30/18 03/31/18 04/01/18 06:59 06:59 06:59 Intake Total 1326.5 1420 Output Total 2175 2140 Balance -848.5 -720 - Physical Examination General/Neuro: alert & oriented x3 Neck: no JVD present Lungs: CTA Heart: RRR Abdomen: soft Extremities: other: (No edema) - Telemetry Telemetry Rhythm: SR 80s - Labs Result Diagrams: 03/28/18 09:34 03/31/18 05:18 Troponin/CKMB CK-MB (CK-2) 2.5 ng/mL (0-6.6) 03/28/18 09:34 Troponin I 0.030 ng/mL (< 0.028) H 03/28/18 15:52 - Assessment/Plan 1. New onset systolic HF - EF 20-25%; On Lasix Po and Lisinopril, but no Bblocker due to hx of COPD 2. COPD - stable with RA 3. DM type 2 - [facility] blood glucose check with SS Insulin 4. Tobacco and Illicit drug abuse - Smoking and Illicit drug cessation education given to the pt. MAR reviewed * Echo on 03/29/18 showed EF 20-25%, mod LV, mildly dilated LA, mild MR, mild AR , mild TR. * Possible cardiac cath on 04/01/[address] Edwards. The procedure and the risk of LHC were explained to the pt, which included but not limited to: Hemorrhage, infection, perforation of catheter, thrombosis, anaphylaxis reaction and damage to renal function by Iodine, CVA, AL, and possible . He voiced understanding and agreed to proceed the procedure tomorrow by Dr Edwards. Review of Systems - Review of Systems Constitutional: reports: no symptoms reported EENTM: reports: no symptoms reported Respiratory: reports: no symptoms reported Cardiac (ROS): reports: no symptoms reported ABD/GI: reports: no symptoms reported : reports: no symptoms reported Musculoskeletal: reports: no symptoms reported <Petra Edwards - Last Filed: 04/01/18 10:12> Cardiology Progress Note - Objective Vital Signs Temp Pulse Resp BP BP Pulse Ox 04/01/18 08:00 97.9 F 88 17 111/78 93 L 04/01/18 06:50 90 12 04/01/18 05:52 89 120/83 04/01/18 04:00 97.4 F L 89 15 120/83 97 Weight 168 lb 8 oz 03/31/18 04/01/18 04/02/18 06:59 06:59 06:59 Intake Total 1420 1120 Output Total 2140 3650 Balance -720 -2530 - Labs Result Diagrams: 03/28/18 09:34 03/31/18 05:18 Troponin/CKMB CK-MB (CK-2) 2.5 ng/mL (0-6.6) 03/28/18 09:34 Troponin I 0.030 ng/mL (< 0.028) H 03/28/18 15:52 - Assessment/Plan Pt. seen and eval. by me.I agre with the A/P by the [employer]. Discussed cardiac cath procedure and risks. He agrees to proceed.
[2018-03-31] MEDS ORDERED: Communication Order-Pharmacy FS SCH (20:45)
[2018-04-01] MEDS: Lisinopril 5 MG TAB PO SCH (05:52)
[2018-04-01] MEDS: guaiFENesin/DM ER PO SCH ×2 (05:53→20:15)
[2018-04-01] MEDS: Furosemide 40 MG TAB PO SCH (05:53)
[2018-04-01] MEDS: predniSONE 20 MG TAB PO SCH ×2 (05:53→20:15)
[2018-04-01] MEDS ORDERED: Lidocaine 1% (PF) 30 ML VIAL ONE (10:04)
[2018-04-01] MEDS ORDERED: Verapamil 5 MG/2 ML VIAL ONE (10:24)
[2018-04-01] MEDS ORDERED: Heparin 10,000 UNITS/1 ML VIAL ONE (10:24)
[2018-04-01] MEDS ORDERED: Nitroglycerin 100MG/250ML BOT 250 ML ONE (10:24)
[2018-04-01] MEDS ORDERED: Midazolam HCl 2 mg/2 ml Vial ONE (10:29)
[2018-04-01] MEDS ORDERED: Fentanyl 100 MCG/2 ML VIAL ONE (10:29)
[2018-04-01] MEDS ORDERED: diphenhydrAMINE 50 MG/ML VIAL ONE (10:59)
[2018-04-01] MEDS ORDERED: traMADol HCl 50 MG TAB PO PRN (11:23)
[2018-04-01] MEDS ORDERED: Nitroglycerin 0.4 MG TAB (25 Tab Bottle) SL PRN (11:23)
[2018-04-01] MEDS ORDERED: Acetaminophen/Codeine 30-300mg Tablet PO PRN ×2 (11:23)
[2018-04-01] MEDS ORDERED: Sodium Chloride 0.9% 200 ML IV SCH (11:23)
[2018-04-01] MEDS ORDERED: Iopamidol 370 76% 100 ML VIAL ONE (15:28)
[2018-04-01] MEDS: Carvedilol 3.125 MG TAB PO SCH (16:11)
[2018-04-01] MEDS ORDERED: Carvedilol 3.125 MG TAB PO SCH (17:00)
[2018-04-01] MEDS ORDERED: Atorvastatin Calcium 20 MG TAB PO SCH (21:00)
[2018-04-02] MEDS: Furosemide 40 MG TAB PO SCH (10:52)
[2018-04-02] MEDS: Carvedilol 3.125 MG TAB PO SCH ×2 (10:53→16:26)
[2018-04-02] MEDS: guaiFENesin/DM ER PO SCH (10:56)
[2018-04-02] MEDS: Lisinopril 5 MG TAB PO SCH (10:57)
[2018-04-02] MEDS: predniSONE 20 MG TAB PO SCH (10:58)
--- NOTE | 2018-04-02 15:12 | PDOC.CTH ---
<Norma Robles - Last Filed: 04/02/18 15:08> Cardiology Progress Note - Subjective The pt seen and examined. No overnight events. No cardiac complaints. - Objective Vital Signs Temp Pulse Resp BP BP Pulse Ox 04/02/18 14:52 90 12 04/02/18 11:52 98.1 F 107 H 16 120/81 96 04/02/18 10:57 86 120/78 04/02/18 10:27 90 14 04/02/18 07:27 97.7 F 86 16 120/78 96 04/02/18 03:55 98 F 81 16 122/72 98 Weight 168 lb 8 oz 04/01/18 04/02/18 04/03/18 06:59 06:59 06:59 Intake Total 1120 Output Total 3650 Balance -2530 - Physical Examination General/Neuro: alert & oriented x3 Neck: no JVD present Lungs: CTA Heart: RRR Abdomen: soft Extremities: other: (No edema) - Telemetry Telemetry Rhythm: SR 90-100 - Labs Result Diagrams: 03/28/18 09:34 03/31/18 05:18 Troponin/CKMB CK-MB (CK-2) 2.5 ng/mL (0-6.6) 03/28/18 09:34 Troponin I 0.030 ng/mL (< 0.028) H 03/28/18 15:52 - Assessment/Plan 1. New onset systolic HF - EF 20-25%; On Lasix Po and Lisinopril, but no Bblocker due to hx of COPD; D/c home with LifeVest 2. CAD - S/p LHC on 04/01/18 with 80% stenosis in mid LAD and 90% in distal to [place]. Medical tx at this moment and possible LAD intervention later. 3. COPD - stable with RA 4. DM type 2 - ACHS blood glucose check with SS Insulin 5. Tobacco and Illicit drug abuse - Smoking and Illicit drug cessation education given to the pt. MAR reviewed * Echo on 03/29/18 showed EF 20-25%, mod LV, mildly dilated LA, mild MR, mild AR , mild TR. * The pt is stable to d/c home from cardiac standpoint. The pt will f/u with Dr Edwards' office within 4-6 wks. Review of Systems - Review of Systems Constitutional: reports: no symptoms reported EENTM: reports: no symptoms reported Respiratory: reports: no symptoms reported Cardiac (ROS): reports: no symptoms reported ABD/GI: reports: no symptoms reported : reports: no symptoms reported Musculoskeletal: reports: no symptoms reported Skin: reports: no symptoms reported Neurological: reports: no symptoms reported <Petra Edwards - Last Filed: 04/02/18 16:18> Cardiology Progress Note - Objective Vital Signs Temp Pulse Resp BP BP Pulse Ox 04/02/18 14:52 90 12 04/02/18 11:52 98.1 F 107 H 16 120/81 96 04/02/18 10:57 86 120/78 04/02/18 10:27 90 14 04/02/18 07:27 97.7 F 86 16 120/78 96 Weight 168 lb 8 oz 04/01/18 04/02/18 04/03/18 06:59 06:59 06:59 Intake Total 1120 Output Total 3650 Balance -2530 - Labs Result Diagrams: 03/28/18 09:34 03/31/18 05:18 Troponin/CKMB CK-MB (CK-2) 2.5 ng/mL (0-6.6) 03/28/18 09:34 Troponin I 0.030 ng/mL (< 0.028) H 03/28/18 15:52 - Assessment/Plan Pt. Seen and eval. by me.I agree with the A/P he is ready for d/c with the Life- Vest. We will see him in the office in 2-3 weeks and continue to adjust the meds. If the EF improves then he may be a candidate for further intervention. If not, the he will likely be a candidate for an implantable defibrillator.
[2018-04-02 16:26] VITALS: BP 121/76; TEMP 97.9
== END 2018-04-02 19:46 | disposition home or self-care (01) | DRG 287 ==
LOC: ERS 09:07 → ERHOLD 11:02 → 2NO 14:53
PROVIDERS: ADMIT Internal Medicine; ATTEND Internal Medicine
PROC: 4A023N7 Measurement of Cardiac Sampling and Pressure, Left Heart, Percutaneous Approach (ICD-10-PCS; principal; 2018-04-01)
PROC: B2111ZZ Fluoroscopy of Multiple Coronary Arteries using Low Osmolar Contrast (ICD-10-PCS; 2018-04-01)
DX: I50.23 Acute on chronic systolic (congestive) heart failure (principal); J44.1 Chronic obstructive pulmonary disease with (acute) exacerbation; I42.8 Other cardiomyopathies; I25.10 Atherosclerotic heart disease of native coronary artery without angina pectoris; F14.988 Cocaine use, unspecified with other cocaine-induced disorder; E11.9 Type 2 diabetes mellitus without complications; G89.29 Other chronic pain; G47.00 Insomnia, unspecified; M54.9 Dorsalgia, unspecified; F17.210 Nicotine dependence, cigarettes, uncomplicated; Z79.52 Long term (current) use of systemic steroids
CPT/HCPCS: 36415; 36416; 71045; 80048; 80053; 80306; 81003; 82553; 83605; 83690; 83735; 83880; 84484; 85025; 93005; 93306; 93458; 94640; 94660; 94760; 96374; 96375; 99152; A4216; C1769; J1200; J1644; J1940; J2001; J2250; J2920; J2930; J3010; J7506; J7620

== ENCOUNTER 2018-09-23 13:42 | Observation (INO) | payer OTHER ==
[2018-09-23] MEDS ORDERED: Magnesium 2 GM/50 ML BAG (IN WATER) ONE (14:06)
[2018-09-23 14:31] LABS: #Basophils 0.1 thou/uL (0.0-0.2); #Eosinphils 0.3 thou/uL (0.0-0.7); #Lymphocytes 2.2 thou/uL (1.20-3.40); #Monocytes 0.8 thou/uL (0.11-0.59); #Neutrophils 5.2 thou/uL (1.40-6.50); %Lymphocytes 25.4 % (21.0-51.0); %Monocytes 8.9 % (0.0-10.0); %Neutrophils 60.8 % (42.0-75.0); Hemoglobin 15.8 g/dL (14.0-18.0); Mean Corpuscular HGB CONC 30.9 g/dL (32.0-36.0); Mean Corpuscular Hemoglobin 31.7 pg (27.0-31.0); Mean Platelet Volume 6.8 fL (7.4-10.4); Platelet Count 329 thou/uL (130-400); RBC Distribution Width 13.3 % (11.5-14.5); Red Blood Cell (RBC) Count 4.98 mill/uL (4.70-6.10); White Blood Cell (WBC) Count 8.6 thou/uL (4.8-10.8)
[2018-09-23 14:43] LABS: ALT (SGPT) 11 U/L (8-55); AST (SGOT) 16 U/L (5-34); Albumin 3.7 g/dL (3.5-5.0); Alkaline Phosphatase 68 U/L (40-150); Anion Gap 12 mmol/L (10-20); BUN (Urea Nitrogen) 9 mg/dL (8.4-25.7); Bilirubin, Total 0.4 mg/dL (0.2-1.2); Calc. Creatinine Clearance 0 mL/min (70-130); Calcium 9.2 mg/dL (7.8-10.44); Carbon Dioxide 28 mmol/L (22-29); Chloride 105 mmol/L (98-107); Estimated GFR-MDRD Greater than 90; Globulin 3.4 g/dL (2.4-3.5); Glucose 93 mg/dL (70-105); Potassium 3.5 mmol/L (3.5-5.1); Protein, Total 7.1 g/dL (6.0-8.3); Sodium 141 mmol/L (136-145)
--- NOTE | 2018-09-23 14:56 | RAD ---
PORTABLE AP CHEST: Date: 09/23/18 HISTORY: COPD and CHF. Bilateral wheezing. COMPARISON: 03/28/18. FINDINGS: Cardiac silhouette is magnified by projection. Pulmonary vasculature is within normal limits. Emphyse matous changes are again seen in the upper lobes. There is mild increase in bibasilar interstitial de nsities, but this is overall similar to the prior exam and may be related to crowded bronchovascular markings and mild scarring. No new consolidation or pleural fluid is seen. No other interval change. IMPRESSION: Chronic lung changes and evidence of COPD. POS: [facility]
[2018-09-23] MEDS ORDERED: diphenhydrAMINE 50 MG/ML VIAL ONE (15:12)
[2018-09-23 15:26] LABS: Bilirubin Negative (Negative); Blood, Urine Negative (Negative); Clarity CLEAR (Clear); Glucose, Urine (Dipstick) Negative (Negative); Leukocyte Negative (Negative); Nitrite Negative (Negative); Protein, Urine (Dipstick) Negative (Neg-Trace); Specific Gravity, Urine 1.009 (1.002-1.036); Urobilinogen 0.2 mg/dL (0.2-1.0)
[2018-09-23] MEDS ORDERED: Cefdinir 300 MG CAP PO SCH (22:45)
[2018-09-23 22:55] LABS: Amphetamine Not Detected (NotDetected); Barbiturates Screen Not Detected (NotDetected); Benzodiazepine Screen Not Detected (NotDetected); Cocaine Metabolite Screen Detected (NotDetected); Medtox Control Line Valid? VALID (VALID); Medtox Reader # READER 1; Methadone Not Detected (NotDetected); Methamphetamine Not Detected (NotDetected); Opiate Screen Not Detected (NotDetected); Oxycodone Screen Not Detected (NotDetected); Phencyclidine (PCP) Not Detected (NotDetected); THC/Cannabinoid Screen Not Detected (NotDetected); Tricyclic Screen Not Detected (NotDetected)
[2018-09-23] MEDS: methylPREDNISolone Sod Succ 40 MG VIAL IVP SCH (23:47)
--- NOTE | 2018-09-24 01:12 | HP ---
CHIEF COMPLAINT: Shortness of breath, cough. HISTORY OF PRESENT ILLNESS: Mr. Prado is a 58-year-old male with past medical history of COPD, CHF, came because of shortness of breath and cough going on for a few hours. The patient smokes still half-pack a day; has been smoking for many years. The patient has been having shortness of breath over the last few days got worse today to the point he could not breathe, he has been using nebulized treatments as well, so he called EMS. EMS found the patient has chest wheezing. He was given Solu-Medrol and continuous nebs and he was brought to the hospital. The patient was still having diffuse wheezing in the ER. The patient received magnesium sulfate as well as Benadryl, given neb treatments, continued on Solu-Medrol. The patient feels better now. He is being admitted for further evaluation and management. PAST MEDICAL HISTORY: 1. COPD. 2. Hyperlipidemia. 3. Chronic back pain. 4. Insomnia. 5. History of recently diagnosed systolic heart failure, decreased LV function, ejection fraction of 25%. Echo done on March 29, 2018. PAST SURGICAL HISTORY: Nothing significant. CURRENT MEDICATIONS: The patient is placed on DuoNebs q.i.d., Restoril 15 mg at bedtime, and tramadol p.r.n. ALLERGIES: NKDA. FAMILY HISTORY: Nothing contributory. SOCIAL HISTORY: The patient lives with family. Smokes half pack a day. No history of cocaine abuse. REVIEW OF SYSTEMS: Cardiovascular: No chest pain. Has shortness of breath. RESPIRATORY: Cough productive of yellow sputum. CENTRAL NERVOUS SYSTEM: No headache, dizziness. PHYSICAL EXAMINATION: GENERAL: The patient is alert, awake, and oriented x3. VITAL SIGNS: Temperature 98, pulse 88, respirations 26, and blood pressure 140/ 100, O2 saturation 98% on 2 L. HEENT: Head is normocephalic and atraumatic. Pupils are equal and reactive. Nasopharynx is pale and dry. Hard and soft palate, no lesions. SKIN: Turgor decreased. NECK: Supple. No JVD. LUNGS: Breath sounds diminished bilaterally. Percussion dull bilaterally. Expiratory wheeze present. HEART: S1 and S2 regular. ABDOMEN: Soft. No distention. No tenderness. Normal bowel sounds present. RECTAL: No symptoms. CENTRAL NERVOUS SYSTEM: No focal deficits. LABORATORY DATA: CBC shows WBC 8.6, hemoglobin 15, hematocrit 40, Sodium 140, potassium 3.5, chloride 105, CO2 of 24, glucose 93. BNP was 190. Troponin I less than 0.010. Urinalysis negative. Chest x-ray, chronic lung changes seen. EKG shows normal sinus rhythm, no acute ST-T wave changes seen. ASSESSMENT: 1. Chronic obstructive pulmonary disease with acute exacerbation, acute on chronic respiratory failure. 2. History of systolic heart failure. 3. Hyperlipidemia. 4. Tobacco abuse. 5. Chronic back pain. 6. History of insomnia. PLAN: 1. Vital signs q.4 hours. 2. Activities as tolerated. 3. Allergies, NKDA. 4. Hep-Lock. 5. DuoNebs q.i.d. 1 unit. 6. Solu-Medrol 40 IVP q.6 hours. 7. Mucinex 600 mg b.i.d. 8. Omnicef 300 mg p.o. b.i.d. 9. Continue his home medications. 10. Urine drug screen. 11. Potassium chloride 10 mEq daily. Job ID: [id number] MTDD
[2018-09-24] MEDS: methylPREDNISolone Sod Succ 40 MG VIAL IVP SCH ×4 (05:45→22:55)
[2018-09-24] MEDS: guaiFENesin ER 600 MG TAB PO SCH ×7 (08:51→19:56)
[2018-09-24] MEDS: Potassium Chloride 10 MEQ TAB PO SCH (08:51)
[2018-09-24] MEDS: Cefdinir 300 MG CAP PO SCH ×2 (08:52→19:54)
[2018-09-24] MEDS ORDERED: Melatonin 3 MG TAB PO PRN (18:23)
[2018-09-24] MEDS ORDERED: Atorvastatin Calcium 20 MG TAB PO SCH (21:00)
[2018-09-25] MEDS: methylPREDNISolone Sod Succ 40 MG VIAL IVP SCH ×2 (05:09→12:02)
[2018-09-25] MEDS: Acetaminophen 325 MG TAB PO PRN ×2 (07:22→12:06)
[2018-09-25] MEDS: Cefdinir 300 MG CAP PO SCH (07:22)
[2018-09-25] MEDS: Potassium Chloride 10 MEQ TAB PO SCH (07:23)
[2018-09-25] MEDS: guaiFENesin ER 600 MG TAB PO SCH (07:23)
[2018-09-25] MEDS ORDERED: Carvedilol 3.125 MG TAB PO SCH (08:00)
[2018-09-25] MEDS ORDERED: Lisinopril 5 MG TAB PO SCH (09:00)
[2018-09-25 15:47] VITALS: BP 160/78; TEMP 97.8
--- NOTE | 2018-09-28 23:35 | EKG ---
Test Reason : DYSPNEA Blood Pressure : / mmHG Vent. Rate : 087 BPM Atrial Rate : 087 BPM P-R Int : 158 ms QRS Dur : 100 ms QT Int : 362 ms P-R-T Axes : 082 033 083 degrees QTc Int : 435 ms Normal sinus rhythm Voltage criteria for left ventricular hypertrophy Abnormal ECG Confirmed by AGUS VELAZQUEZ, ALFRED ([id number]), brands editor ANDI VILLASEÑOR ([id number]) on 09/28/2018 11:35:12 PM Referred By: AGUS Confirmed By:ALFRED GOLDSMITH MD
== END 2018-09-25 16:24 | disposition home or self-care (01) ==
LOC: ERS 13:42 → ERHOLD 15:53 → 3SE 22:07 → T4-B 09-24 14:57
PROVIDERS: ADMIT Internal Medicine; ATTEND Internal Medicine
DX: J44.1 Chronic obstructive pulmonary disease with (acute) exacerbation (principal); J96.21 Acute and chronic respiratory failure with hypoxia; F17.210 Nicotine dependence, cigarettes, uncomplicated; I50.20 Unspecified systolic (congestive) heart failure; G47.00 Insomnia, unspecified; E78.5 Hyperlipidemia, unspecified; G89.29 Other chronic pain; M54.9 Dorsalgia, unspecified; Z79.899 Other long term (current) drug therapy
CPT/HCPCS: 36415; 36416; 71045; 80053; 80306; 81003; 83605; 83880; 84484; 85025; 93005; 94640; 94760; 96365; 96366; 96375; 96376; G0378; J1200; J2920; J3475; J7620

== ENCOUNTER 2020-12-11 12:07 | Inpatient (IN) | payer OTHER ==
[2020-12-11 13:05] LABS: #Eosinphils 0.1 thou/uL (0.0-0.7); #Lymphocytes 1.4 thou/uL (1.20-3.40); #Monocytes 0.9 thou/uL (0.11-0.59); #Neutrophils 9.9 thou/uL (1.40-6.50); %Basophils 0.3 % (0.0-1.0); %Eosinophils 0.5 % (0.0-10.0); %Lymphocytes 11.6 % (21.0-51.0); %Neutrophils 80.7 % (42.0-75.0); Hemoglobin 17.2 g/dL (14.0-18.0); Mean Corpuscular HGB CONC 31.9 g/dL (32.0-36.0); Mean Corpuscular Hemoglobin 31.6 pg (27.0-31.0); Mean Corpuscular Volume 99.1 fL (78.0-98.0); Mean Platelet Volume 7.2 fL (7.4-10.4); Platelet Count 271 thou/uL (130-400); RBC Distribution Width 13.8 % (11.5-14.5); Red Blood Cell (RBC) Count 5.43 mill/uL (4.70-6.10); White Blood Cell (WBC) Count 12.2 thou/uL (4.8-10.8)
[2020-12-11 13:28] LABS: ALT (SGPT) 12 U/L (8-55); AST (SGOT) 21 U/L (5-34); Albumin 3.7 g/dL (3.4-4.8); Alkaline Phosphatase 68 U/L (40-110); Anion Gap 18 mmol/L (10-20); BUN (Urea Nitrogen) 14 mg/dL (8.4-25.7); Bilirubin, Total 0.4 mg/dL (0.2-1.2); Calc. Creatinine Clearance 0 mL/min (70-130); Calcium 8.5 mg/dL (7.8-10.44); Carbon Dioxide 20 mmol/L (23-31); Chloride 102 mmol/L (98-107); Globulin 3.6 g/dL (2.4-3.5); Glucose 118 mg/dL (80-115); Potassium 5.3 mmol/L (3.5-5.1); Protein, Total 7.3 g/dL (5.8-8.1); Sodium 135 mmol/L (136-145)
[2020-12-11] MEDS ORDERED: Metoprolol Tartrate 5 MG/5 ML VIAL IVP PRN (14:19)
[2020-12-11 14:38] LABS: SARS-CoV-2 NAA Rapid Test Not Detected (NotDetected)
[2020-12-11 16:27] VITALS: BMI 27.3
[2020-12-11] MEDS ORDERED: methylPREDNISolone Sod Succ/PF 125 MG/2 ML VIAL IVP SCH ×2 (18:00→21:45)
[2020-12-11] MEDS ORDERED: Labetalol HCl 100 MG/20 ML VIAL SLOW IVP PRN (20:57)
[2020-12-11] MEDS ORDERED: Carvedilol 3.125 MG TAB PO SCH (21:00)
[2020-12-11] MEDS ORDERED: Bacteriostatic Water 30 ML VIAL FS PRN (21:45)
[2020-12-11] MEDS ORDERED: guaiFENesin ER 600 MG TAB PO SCH (21:45)
[2020-12-11] MEDS ORDERED: Magnesium 2 GM/50 ML 2 GM in Premix Bag 1 BAG IVPB SCH (21:45)
[2020-12-11] MEDS: Atorvastatin Calcium 20 MG TAB PO SCH (22:05)
[2020-12-11] MEDS: Benzonatate 100 MG CAP PO PRN (23:17)
[2020-12-11] MEDS: methylPREDNISolone Sod Succ 40 MG VIAL IVP SCH (23:48)
[2020-12-12] MEDS ORDERED: guaiFENesin/Codeine 200 mg/20 mg 10 ml Cup PO PRN (01:49)
[2020-12-12] MEDS: Benzonatate 100 MG CAP PO PRN ×2 (04:26→23:32)
[2020-12-12] MEDS: methylPREDNISolone Sod Succ 40 MG VIAL IVP SCH (05:08)
[2020-12-12 05:57] LABS: #Lymphocytes 0.8 thou/uL (1.20-3.40); #Monocytes 0.3 thou/uL (0.11-0.59); %Basophils 0.2 % (0.0-1.0); %Lymphocytes 6.2 % (21.0-51.0); %Monocytes 1.9 % (0.0-10.0); %Neutrophils 91.7 % (42.0-75.0); Hemoglobin 16.4 g/dL (14.0-18.0); Mean Corpuscular HGB CONC 30.9 g/dL (32.0-36.0); Mean Corpuscular Hemoglobin 30.9 pg (27.0-31.0); Mean Platelet Volume 7.1 fL (7.4-10.4); Platelet Count 289 thou/uL (130-400); Red Blood Cell (RBC) Count 5.31 mill/uL (4.70-6.10); White Blood Cell (WBC) Count 13.1 thou/uL (4.8-10.8)
[2020-12-12 06:25] LABS: Anion Gap 15 mmol/L (10-20); BUN (Urea Nitrogen) 14 mg/dL (8.4-25.7); Calc. Creatinine Clearance 117 mL/min (70-130); Carbon Dioxide 24 mmol/L (23-31); Chloride 100 mmol/L (98-107); Glucose 126 mg/dL (80-115); Potassium 4.8 mmol/L (3.5-5.1); Sodium 134 mmol/L (136-145)
[2020-12-12] MEDS: Lisinopril 5 MG TAB PO SCH (08:01)
[2020-12-12] MEDS: Enoxaparin Sodium 40 MG/0.4 ML SYRINGE SC SCH (08:02)
[2020-12-12] MEDS: Carvedilol 3.125 MG TAB PO SCH ×2 (08:02→17:42)
[2020-12-12] MEDS: guaiFENesin ER 600 MG TAB PO SCH ×2 (08:32→20:33)
[2020-12-12] MEDS: guaiFENesin/Codeine 200 mg/20 mg 10 ml Cup PO PRN ×3 (08:32→20:33)
[2020-12-12 08:39] LABS: Hemoglobin A1c 6.1 % (4.0-6.0)
[2020-12-12] MEDS ORDERED: guaiFENesin ER 600 MG TAB PO SCH (09:00)
[2020-12-12] MEDS: methylPREDNISolone Sod Succ/PF 125 MG/2 ML VIAL IVP SCH ×3 (12:37→23:32)
[2020-12-12] MEDS ORDERED: Acetaminophen 325 MG TAB PO PRN (12:42)
[2020-12-12] MEDS: Lorazepam 0.5 MG TAB PO PRN ×2 (15:09→23:32)
[2020-12-12] MEDS: Atorvastatin Calcium 20 MG TAB PO SCH (20:33)
[2020-12-12] MEDS: Cepastat Lozenges 1 LOZ PO PRN ×2 (20:34→23:34)
[2020-12-13] MEDS: methylPREDNISolone Sod Succ/PF 125 MG/2 ML VIAL IVP SCH ×4 (05:37→23:34)
[2020-12-13] MEDS: guaiFENesin/Codeine 200 mg/20 mg 10 ml Cup PO PRN (05:38)
[2020-12-13] MEDS: Cepastat Lozenges 1 LOZ PO PRN (05:38)
[2020-12-13] MEDS: Enoxaparin Sodium 40 MG/0.4 ML SYRINGE SC SCH (08:12)
[2020-12-13] MEDS: Lisinopril 5 MG TAB PO SCH (08:12)
[2020-12-13] MEDS: Carvedilol 3.125 MG TAB PO SCH ×2 (08:12→17:40)
[2020-12-13] MEDS: Lorazepam 0.5 MG TAB PO PRN (08:12)
[2020-12-13] MEDS: guaiFENesin ER 600 MG TAB PO SCH ×2 (08:12→20:55)
[2020-12-13] MEDS ORDERED: hydrALAZINE 20 MG/ML VIAL SLOW IVP PRN (11:43)
[2020-12-13] MEDS: Atorvastatin Calcium 20 MG TAB PO SCH (20:55)
[2020-12-14] MEDS: methylPREDNISolone Sod Succ/PF 125 MG/2 ML VIAL IVP SCH ×2 (05:48→12:03)
[2020-12-14] MEDS: Benzonatate 100 MG CAP PO PRN (06:34)
[2020-12-14] MEDS: guaiFENesin/Codeine 200 mg/20 mg 10 ml Cup PO PRN ×2 (06:43→15:23)
[2020-12-14] MEDS: Lisinopril 5 MG TAB PO SCH (09:01)
[2020-12-14] MEDS: Carvedilol 3.125 MG TAB PO SCH ×2 (09:01→17:50)
[2020-12-14] MEDS: guaiFENesin ER 600 MG TAB PO SCH ×2 (09:01→21:01)
[2020-12-14] MEDS: Enoxaparin Sodium 40 MG/0.4 ML SYRINGE SC SCH (09:02)
[2020-12-14] MEDS: methylPREDNISolone Sod Succ 40 MG VIAL IVP SCH ×2 (17:50→23:48)
[2020-12-14] MEDS ORDERED: Fluticasone Propionate HFA 220 MCG AER INH SCH (18:30)
[2020-12-14] MEDS ORDERED: Mometasone 200 MCG/PUFF (1 INHALER) INH SCH (19:00)
[2020-12-14] MEDS: Atorvastatin Calcium 20 MG TAB PO SCH (21:01)
[2020-12-14] MEDS: Lorazepam 0.5 MG TAB PO PRN (21:01)
[2020-12-15] MEDS: guaiFENesin/Codeine 200 mg/20 mg 10 ml Cup PO PRN (02:37)
[2020-12-15] MEDS: methylPREDNISolone Sod Succ 40 MG VIAL IVP SCH ×4 (05:17→23:51)
[2020-12-15] MEDS ORDERED: Mometasone 100 MCG/PUFF (1 INHALER) INH SCH (06:30)
[2020-12-15] MEDS: Mometasone 200 MCG/PUFF (1 INHALER) INH SCH ×2 (07:22→18:55)
[2020-12-15] MEDS: guaiFENesin ER 600 MG TAB PO SCH ×2 (09:05→21:10)
[2020-12-15] MEDS: Carvedilol 3.125 MG TAB PO SCH ×2 (09:06→18:08)
[2020-12-15] MEDS: Enoxaparin Sodium 40 MG/0.4 ML SYRINGE SC SCH (09:11)
[2020-12-15] MEDS: Lisinopril 5 MG TAB PO SCH (09:11)
[2020-12-15] MEDS ORDERED: Lisinopril 20 MG TAB PO SCH (11:30)
[2020-12-15] MEDS: Lorazepam 0.5 MG TAB PO PRN (21:10)
[2020-12-15] MEDS: Atorvastatin Calcium 20 MG TAB PO SCH (21:10)
[2020-12-16 06:26] LABS: #Lymphocytes 0.7 thou/uL (1.20-3.40); #Monocytes 0.8 thou/uL (0.11-0.59); #Neutrophils 11.3 thou/uL (1.40-6.50); %Basophils 0.3 % (0.0-1.0); %Lymphocytes 5.2 % (21.0-51.0); %Monocytes 5.9 % (0.0-10.0); %Neutrophils 88.6 % (42.0-75.0); Hemoglobin 17.1 g/dL (14.0-18.0); Mean Corpuscular HGB CONC 31.3 g/dL (32.0-36.0); Mean Corpuscular Hemoglobin 31.8 pg (27.0-31.0); Mean Platelet Volume 7.9 fL (7.4-10.4); Platelet Count 260 thou/uL (130-400); RBC Distribution Width 13.6 % (11.5-14.5); Red Blood Cell (RBC) Count 5.39 mill/uL (4.70-6.10); White Blood Cell (WBC) Count 12.7 thou/uL (4.8-10.8)
[2020-12-16] MEDS: methylPREDNISolone Sod Succ 40 MG VIAL IVP SCH (06:29)
[2020-12-16 06:43] LABS: Anion Gap 13 mmol/L (10-20); BUN (Urea Nitrogen) 23 mg/dL (8.4-25.7); Calc. Creatinine Clearance 117 mL/min (70-130); Calcium 9.4 mg/dL (7.8-10.44); Carbon Dioxide 34 mmol/L (23-31); Chloride 98 mmol/L (98-107); Glucose 100 mg/dL (80-115); Potassium 4.6 mmol/L (3.5-5.1); Sodium 140 mmol/L (136-145)
[2020-12-16] MEDS: Mometasone 200 MCG/PUFF (1 INHALER) INH SCH (07:03)
[2020-12-16] MEDS: Enoxaparin Sodium 40 MG/0.4 ML SYRINGE SC SCH (07:25)
[2020-12-16] MEDS: guaiFENesin ER 600 MG TAB PO SCH (07:25)
[2020-12-16] MEDS: Carvedilol 3.125 MG TAB PO SCH (07:25)
[2020-12-16 07:27] VITALS: BP 152/99
[2020-12-16 08:43] VITALS: TEMP 98.7
[2020-12-16] MEDS ORDERED: Lisinopril 20 MG TAB PO SCH (09:00)
== END 2020-12-16 13:39 | disposition home or self-care (01) | DRG 190 ==
LOC: ERS 12:07 → T4-A 14:07
PROVIDERS: ADMIT Internal Medicine; ATTEND Internal Medicine
PROC: 5A09357 Assistance with Respiratory Ventilation, Less than 24 Consecutive Hours, Continuous Positive Airway Pressure (ICD-10-PCS; principal; 2020-12-11)
DX: J44.1 Chronic obstructive pulmonary disease with (acute) exacerbation (principal); J96.01 Acute respiratory failure with hypoxia; I50.22 Chronic systolic (congestive) heart failure; I50.30 Unspecified diastolic (congestive) heart failure; Z20.822 Contact with and (suspected) exposure to COVID-19; F14.10 Cocaine abuse, uncomplicated; F17.210 Nicotine dependence, cigarettes, uncomplicated; Z79.899 Other long term (current) drug therapy; Z98.890 Other specified postprocedural states; E78.00 Pure hypercholesterolemia, unspecified; M54.9 Dorsalgia, unspecified; G89.29 Other chronic pain; G47.00 Insomnia, unspecified; I11.0 Hypertensive heart disease with heart failure; F41.9 Anxiety disorder, unspecified; Z79.51 Long term (current) use of inhaled steroids; Z79.52 Long term (current) use of systemic steroids
CPT/HCPCS: 0240U; 36415; 71045; 80048; 80053; 83036; 83880; 84484; 85025; 93005; 94660; 94760; J1650; J2920; J2930; J3475; J7620

== ENCOUNTER 2021-12-05 06:04 | Emergency (ER) | payer OTHER ==
[2021-12-05] MEDS ORDERED: Albuterol Sulfate 2.5 mg/0.5 ml Neb ONE (07:31)
[2021-12-05 07:38] LABS: ALT (SGPT) 36 U/L (8-55); AST (SGOT) 35 U/L (5-34); Albumin 3.8 g/dL (3.4-4.8); Alkaline Phosphatase 69 U/L (40-110); Anion Gap 16 mmol/L (10-20); BUN (Urea Nitrogen) 16 mg/dL (8.4-25.7); Bilirubin, Total 2.8 mg/dL (0.2-1.2); Calc. Creatinine Clearance 0 mL/min (70-130); Carbon Dioxide 22 mmol/L (23-31); Chloride 104 mmol/L (98-107); Globulin 2.5 g/dL (2.4-3.5); Glucose 81 mg/dL (80-115); Potassium 4.2 mmol/L (3.5-5.1); Protein, Total 6.3 g/dL (5.8-8.1); Sodium 138 mmol/L (136-145)
[2021-12-05 07:39] LABS: #Lymphocytes 1.4 thou/uL (1.20-3.40); #Monocytes 0.8 thou/uL (0.11-0.59); #Neutrophils 4.5 thou/uL (1.40-6.50); %Basophils 0.2 % (0.0-1.0); %Eosinophils 0.4 % (0.0-10.0); %Lymphocytes 20.5 % (21.0-51.0); %Monocytes 11.6 % (0.0-10.0); %Neutrophils 67.3 % (42.0-75.0); Hemoglobin 15.2 g/dL (14.0-18.0); Mean Corpuscular HGB CONC 31.8 g/dL (32.0-36.0); Mean Corpuscular Hemoglobin 34.1 pg (27.0-31.0); Mean Platelet Volume 8.6 fL (7.4-10.4); Platelet Count 176 thou/uL (130-400); RBC Distribution Width 15.8 % (11.5-14.5); Red Blood Cell (RBC) Count 4.47 mill/uL (4.70-6.10); White Blood Cell (WBC) Count 6.6 thou/uL (4.8-10.8)
[2021-12-05 08:00] LABS: CKMB 2.2 ng/mL (0-6.6)
[2021-12-05 08:33] LABS: Acetaminophen Less than 10.0 mcg/mL (10.0-30.0); Alcohol Less than 10 mg/dL (Less than 10); CK (CPK) 86 U/L (30-200); Lipase 16 U/L (8-78); Magnesium 1.9 mg/dL (1.6-2.6); Salicylate Less than 8.0 mg/dL (15.0-30.0)
[2021-12-05] MEDS ORDERED: Iopamidol 370 76% 100 ML VIAL ONE (08:55)
== END 2021-12-05 13:23 | disposition home or self-care (01) ==
LOC: ERS 06:04
DX: J44.1 Chronic obstructive pulmonary disease with (acute) exacerbation (principal); I50.9 Heart failure, unspecified; Z87.891 Personal history of nicotine dependence; Z79.899 Other long term (current) drug therapy; Z79.52 Long term (current) use of systemic steroids
CPT/HCPCS: 36415; 71045; 71275; 80053; 80307; 82550; 82553; 83690; 83735; 84443; 84484; 85025; 85379; 93005; 94640; J7611; J7620; Q9967

== ENCOUNTER 2022-08-28 12:06 | Inpatient (IN) | payer OTHER ==
[2022-08-28] MEDS ORDERED: Albuterol 2.5 MG/0.5 ML NEB ONE (12:15)
[2022-08-28] MEDS ORDERED: cefTRIAXone\\ROCEPHIN 1 GM VIAL ONE (13:00)
[2022-08-28 13:04] LABS: #Basophils 0.1 thou/uL (0.0-0.2); #Eosinphils 0.3 thou/uL (0.0-0.7); #Lymphocytes 1.4 thou/uL (1.20-3.40); #Monocytes 0.8 thou/uL (0.11-0.59); #Neutrophils 6.9 thou/uL (1.40-6.50); %Basophils 0.9 % (0.0-1.0); %Eosinophils 2.9 % (0.0-10.0); %Lymphocytes 14.7 % (21.0-51.0); %Monocytes 8.7 % (0.0-10.0); %Neutrophils 72.8 % (42.0-75.0); Hemoglobin 15.8 g/dL (14.0-18.0); Mean Corpuscular HGB CONC 31.5 g/dL (32.0-36.0); Mean Corpuscular Hemoglobin 32.7 pg (27.0-31.0); Mean Platelet Volume 7.7 fL (7.4-10.4); Platelet Count 195 10x3/uL (130-400); RBC Distribution Width 13.6 % (11.5-14.5); Red Blood Cell (RBC) Count 4.82 mill/uL (4.70-6.10); White Blood Cell (WBC) Count 9.5 10x3/uL (4.8-10.8)
[2022-08-28 13:12] LABS: INR-International Normal Ratio 3.2; PTT 41.5 sec (22.9-36.1); Prothrombin Time 33.9 sec (12.0-14.7)
[2022-08-28 13:14] LABS: D-Dimer Test Less than 0.27 *mcg/mL (0.27-0.43)
[2022-08-28 13:27] LABS: Actual Bicarbonate (HCO3a) 27.7 mEq/L (22-28); Analyzer IN Cardio ER; Base Excess (BEa) 0.8 mEq/L (-2.0 to +3.0); CO2 Tension 52.2 mmHg (35.0-45.0); Calcium, Ionized (arterial) 1.18 mmol/L (1.12-1.30); Carboxyhemoglobin (COHb) 2.5 gm% (0.0-3.0); Hemoglobin (Hb) 16.2 g/dL (14.0-18.0); O2 Tension (PaO2), arterial 71.4 mmHg (> 80.0); Potassium - ABG Lab 3.97 mmol/L (3.70-5.30); pH, Arterial 7.34 (7.35-7.45)
[2022-08-28 13:28] LABS: ALT (SGPT) 13 U/L (8-55); AST (SGOT) 19 U/L (5-34); Albumin 3.5 g/dL (3.4-4.8); Alkaline Phosphatase 65 U/L (40-110); Anion Gap 14 mmol/L (10-20); BUN (Urea Nitrogen) 12 mg/dL (8.4-25.7); Bilirubin, Total 0.6 mg/dL (0.2-1.2); Calc. Creatinine Clearance 0 mL/min (70-130); Carbon Dioxide 26 mmol/L (23-31); Chloride 103 mmol/L (98-107); Estimated GFR 99; Globulin 3.8 g/dL (2.4-3.5); Glucose 104 mg/dL (80-115); Potassium 4.3 mmol/L (3.5-5.1); Protein, Total 7.3 g/dL (5.8-8.1); Sodium 139 mmol/L (136-145)
[2022-08-28 13:36] LABS: Puncture Site RBA
[2022-08-28] MEDS ORDERED: Ondansetron PF 4 MG/2 ML Vial IVP PRN (13:51)
[2022-08-28] MEDS ORDERED: Acetaminophen 325 MG TAB PO PRN (13:51)
[2022-08-28] MEDS ORDERED: Azithromycin 500 MG VIAL ONE (14:10)
[2022-08-28 15:06] LABS: SARS-CoV-2 NAA Rapid Test Not Detected (NotDetected)
[2022-08-28] MEDS: Ipratropium/Albuterol 3 ML NEB NEB SCH (19:19)
[2022-08-28] MEDS: methylPREDNISolone Sod Succ 40 MG VIAL IVP SCH ×2 (19:30→23:31)
[2022-08-28 20:00] VITALS: BMI 21.4
[2022-08-28] MEDS ORDERED: guaiFENesin/DM ER PO SCH (23:45)
[2022-08-29] MEDS: Ipratropium/Albuterol 3 ML NEB NEB SCH ×4 (00:43→19:24)
[2022-08-29 04:17] LABS: #Lymphocytes 0.4 thou/uL (1.20-3.40); #Monocytes 0.1 thou/uL (0.11-0.59); #Neutrophils 7.6 thou/uL (1.40-6.50); %Eosinophils 0.1 % (0.0-10.0); %Lymphocytes 4.9 % (21.0-51.0); %Monocytes 1.3 % (0.0-10.0); %Neutrophils 93.7 % (42.0-75.0); Hemoglobin 15.7 g/dL (14.0-18.0); Mean Corpuscular HGB CONC 31.4 g/dL (32.0-36.0); Mean Corpuscular Hemoglobin 32.4 pg (27.0-31.0); Mean Platelet Volume 7.5 fL (7.4-10.4); Platelet Count 202 10x3/uL (130-400); RBC Distribution Width 13.6 % (11.5-14.5); Red Blood Cell (RBC) Count 4.86 mill/uL (4.70-6.10); White Blood Cell (WBC) Count 8.1 10x3/uL (4.8-10.8)
[2022-08-29 04:26] LABS: INR-International Normal Ratio 3.7; Prothrombin Time 38.5 sec (12.0-14.7)
[2022-08-29 04:38] LABS: Anion Gap 11 mmol/L (10-20); BUN (Urea Nitrogen) 18 mg/dL (8.4-25.7); Calc. Creatinine Clearance 98 mL/min (70-130); Carbon Dioxide 25 mmol/L (23-31); Chloride 103 mmol/L (98-107); Estimated GFR 103; Glucose 135 mg/dL (80-115); Potassium 4.5 mmol/L (3.5-5.1); Sodium 134 mmol/L (136-145)
[2022-08-29] MEDS: methylPREDNISolone Sod Succ 40 MG VIAL IVP SCH ×3 (05:37→17:41)
[2022-08-29] MEDS: guaiFENesin/DM ER PO SCH ×2 (09:10→19:07)
[2022-08-29] MEDS: Ipratropium/Albuterol 3 ML NEB NEB PRN (13:22)
[2022-08-29] MEDS ORDERED: Amlodipine 5 MG TAB PO SCH (13:45)
[2022-08-29] MEDS ORDERED: cefTRIAXone\\ROCEPHIN 1 GM in Sodium Chloride 0.9% 100 ML IVPB SCH (14:00)
[2022-08-29 15:46] LABS: Amphetamine Not Detected (NotDetected); Barbiturates Screen Not Detected (NotDetected); Benzodiazepine Screen Not Detected (NotDetected); Cocaine Metabolite Screen Detected (NotDetected); Methadone Not Detected (NotDetected); Methamphetamine Not Detected (NotDetected); Opiate Screen Not Detected (NotDetected); Oxycodone Screen Not Detected (NotDetected); Phencyclidine (PCP) Not Detected (NotDetected); THC/Cannabinoid Screen Not Detected (NotDetected); Tricyclic Screen Not Detected (NotDetected)
[2022-08-29] MEDS ORDERED: Atorvastatin Calcium 40 MG TAB PO SCH (21:00)
[2022-08-30] MEDS: Ipratropium/Albuterol 3 ML NEB NEB SCH ×2 (00:09→07:10)
[2022-08-30 05:19] LABS: INR-International Normal Ratio 3.5; Prothrombin Time 36.9 sec (12.0-14.7)
[2022-08-30] MEDS ORDERED: predniSONE 20 MG TAB PO SCH (08:00)
[2022-08-30] MEDS ORDERED: Multivitamin W/ Minerals 1 TAB PO SCH (09:00)
[2022-08-30] MEDS ORDERED: Amlodipine 5 MG TAB PO SCH (09:00)
[2022-08-30] MEDS: guaiFENesin/DM ER PO SCH (09:24)
[2022-08-30] MEDS: Ipratropium/Albuterol 3 ML NEB NEB PRN (11:40)
[2022-08-30 11:42] VITALS: BP 131/85; TEMP 98
[2022-08-31] MEDS ORDERED: Warfarin Sodium 5 MG TAB PO SCH (17:00)
== END 2022-08-30 12:30 | disposition home or self-care (01) | DRG 189 ==
LOC: ERS 12:06 → ERHOLD 15:00 → 2NO 18:30
PROVIDERS: ADMIT Internal Medicine; ATTEND Internal Medicine
DX: J96.21 Acute and chronic respiratory failure with hypoxia (principal); E43 Unspecified severe protein-calorie malnutrition; J44.1 Chronic obstructive pulmonary disease with (acute) exacerbation; I50.9 Heart failure, unspecified; E78.5 Hyperlipidemia, unspecified; Z20.822 Contact with and (suspected) exposure to COVID-19; Z86.711 Personal history of pulmonary embolism; Z98.890 Other specified postprocedural states; Z90.49 Acquired absence of other specified parts of digestive tract; Z79.01 Long term (current) use of anticoagulants; Z86.73 Personal history of transient ischemic attack (TIA), and cerebral infarction without residual deficits; Z79.899 Other long term (current) drug therapy; Z87.891 Personal history of nicotine dependence; Z68.21 Body mass index [BMI] 21.0-21.9, adult
CPT/HCPCS: 36415; 36416; 36600; 71045; 80048; 80053; 80306; 82805; 83605; 83880; 84484; 85025; 85379; 85610; 85730; 87040; 93005; 94640; 96365; 96375; J0456; J0696; J1956; J2920; J3490; J7512; J7611; J7620; U0002

== ENCOUNTER 2023-01-04 17:34 | Inpatient (IN) | payer OTHER ==
[2023-01-04 18:17] LABS: #Basophils 0.1 thou/uL (0.0-0.2); #Eosinphils 0.2 thou/uL (0.0-0.7); #Monocytes 0.5 thou/uL (0.11-0.59); #Neutrophils 3.6 thou/uL (1.40-6.50); %Basophils 1.1 % (0.0-1.0); %Eosinophils 2.9 % (0.0-10.0); %Lymphocytes 30.7 % (21.0-51.0); %Monocytes 7.8 % (0.0-10.0); %Neutrophils 57.3 % (42.0-75.0); Hemoglobin 14.6 g/dL (14.0-18.0); Mean Corpuscular HGB CONC 32.6 g/dL (32.0-36.0); Mean Corpuscular Volume 101.1 fl (78.0-98.0); Mean Platelet Volume 9.6 fL (7.4-10.4); Platelet Count 245 10x3/uL (130-400); RBC Distribution Width 14.7 % (11.5-14.5); Red Blood Cell (RBC) Count 4.43 mill/uL (4.70-6.10); White Blood Cell (WBC) Count 6.3 10x3/uL (4.8-10.8)
[2023-01-04 18:41] LABS: ALT (SGPT) 21 U/L (8-55); AST (SGOT) 23 U/L (5-34); Albumin 3.7 g/dL (3.4-4.8); Alkaline Phosphatase 48 U/L (40-110); Anion Gap 14 mmol/L (10-20); BUN (Urea Nitrogen) 15 mg/dL (8.4-25.7); Bilirubin, Total 0.6 mg/dL (0.2-1.2); Calc. Creatinine Clearance 0 mL/min (70-130); Calcium 8.7 mg/dL (7.8-10.44); Carbon Dioxide 23 mmol/L (23-31); Chloride 107 mmol/L (98-107); Estimated GFR 101; Globulin 2.8 g/dL (2.4-3.5); Glucose 79 mg/dL (80-115); Protein, Total 6.5 g/dL (5.8-8.1); Sodium 140 mmol/L (136-145)
[2023-01-04] MEDS ORDERED: Aspirin Chewable 81 MG TAB ONE (18:41)
[2023-01-04] MEDS ORDERED: Ipratropium/Albuterol 3 ML NEB ONE (18:43)
[2023-01-04] MEDS ORDERED: Ipratropium/Albuterol 3 ML NEB NEB PRN (21:19)
[2023-01-04] MEDS ORDERED: Furosemide 40 MG/4 ML VIAL ONE (21:41)
[2023-01-04 22:45] VITALS: BMI 22.1
[2023-01-05 01:58] LABS: Troponin I 0.036 ng/mL (< 0.028)
[2023-01-05 04:15] LABS: #Monocytes 0.2 thou/uL (0.11-0.59); #Neutrophils 7.9 thou/uL (1.40-6.50); %Basophils 0.1 % (0.0-1.0); %Lymphocytes 5.8 % (21.0-51.0); %Monocytes 2.4 % (0.0-10.0); %Neutrophils 91.5 % (42.0-75.0); Hemoglobin 16.6 g/dL (14.0-18.0); Mean Corpuscular HGB CONC 33.6 g/dL (32.0-36.0); Mean Corpuscular Hemoglobin 33.3 pg (27.0-31.0); Mean Platelet Volume 9.8 fL (7.4-10.4); Platelet Count 262 10x3/uL (130-400); RBC Distribution Width 14.7 % (11.5-14.5); Red Blood Cell (RBC) Count 4.99 mill/uL (4.70-6.10); White Blood Cell (WBC) Count 8.6 10x3/uL (4.8-10.8)
[2023-01-05] MEDS: Furosemide 40 MG/4 ML VIAL SLOW IVP SCH ×2 (06:08→14:29)
[2023-01-05 06:22] LABS: Anion Gap 11 mmol/L (10-20); BUN (Urea Nitrogen) 21 mg/dL (8.4-25.7); Calc. Creatinine Clearance 86 mL/min (70-130); Calcium 9.4 mg/dL (7.8-10.44); Carbon Dioxide 28 mmol/L (23-31); Chloride 104 mmol/L (98-107); Estimated GFR 98; Glucose 143 mg/dL (80-115); Potassium 4.1 mmol/L (3.5-5.1); Sodium 139 mmol/L (136-145)
[2023-01-05] MEDS: Ipratropium/Albuterol 3 ML NEB NEB SCH ×4 (07:47→18:23)
[2023-01-05 08:17] LABS: INR-International Normal Ratio 2.3; Prothrombin Time 26.4 sec (12.0-14.7)
[2023-01-05] MEDS ORDERED: Amlodipine 5 MG TAB PO SCH (09:00)
[2023-01-05] MEDS: Carvedilol 3.125 MG TAB PO SCH ×2 (09:05→18:58)
[2023-01-05] MEDS: guaiFENesin ER 600 MG TAB PO SCH ×2 (09:05→21:20)
[2023-01-05] MEDS: Empagliflozin 10 MG TAB PO SCH (09:05)
[2023-01-05] MEDS: predniSONE 20 MG TAB PO SCH (09:05)
[2023-01-05] MEDS: Multivitamin W/ Minerals 1 TAB PO SCH (09:05)
[2023-01-05] MEDS: Mometasone 200 MCG/Formoterol 5 MCG 120 PUFF INHALER INH SCH (18:23)
[2023-01-05] MEDS: Warfarin Sodium 5 MG TAB PO SCH (18:58)
[2023-01-05] MEDS: Atorvastatin Calcium 40 MG TAB PO SCH (21:20)
[2023-01-06 05:05] LABS: INR-International Normal Ratio 2.8; Prothrombin Time 30.7 sec (12.0-14.7)
[2023-01-06] MEDS: Furosemide 40 MG/4 ML VIAL SLOW IVP SCH ×2 (05:36→14:34)
[2023-01-06] MEDS: Ipratropium/Albuterol 3 ML NEB NEB SCH ×4 (07:50→18:31)
[2023-01-06] MEDS: Mometasone 200 MCG/Formoterol 5 MCG 120 PUFF INHALER INH SCH ×2 (07:50→18:32)
[2023-01-06] MEDS: Empagliflozin 10 MG TAB PO SCH (09:06)
[2023-01-06] MEDS: predniSONE 20 MG TAB PO SCH (09:06)
[2023-01-06] MEDS: Multivitamin W/ Minerals 1 TAB PO SCH (09:06)
[2023-01-06] MEDS: Carvedilol 3.125 MG TAB PO SCH ×2 (09:06→16:44)
[2023-01-06] MEDS: guaiFENesin ER 600 MG TAB PO SCH ×2 (09:06→20:12)
[2023-01-06] MEDS: Warfarin Sodium 5 MG TAB PO SCH (16:45)
[2023-01-06] MEDS: Atorvastatin Calcium 40 MG TAB PO SCH (20:12)
[2023-01-07] MEDS: Furosemide 40 MG/4 ML VIAL SLOW IVP SCH (05:37)
[2023-01-07] MEDS: Mometasone 200 MCG/Formoterol 5 MCG 120 PUFF INHALER INH SCH ×2 (07:13→18:56)
[2023-01-07] MEDS: Ipratropium/Albuterol 3 ML NEB NEB SCH ×4 (07:16→18:54)
[2023-01-07] MEDS: predniSONE 20 MG TAB PO SCH (08:04)
[2023-01-07] MEDS: Empagliflozin 10 MG TAB PO SCH (08:05)
[2023-01-07] MEDS: guaiFENesin ER 600 MG TAB PO SCH ×2 (08:05→20:08)
[2023-01-07] MEDS: Multivitamin W/ Minerals 1 TAB PO SCH (08:05)
[2023-01-07] MEDS: Carvedilol 3.125 MG TAB PO SCH ×2 (08:05→16:16)
[2023-01-07] MEDS ORDERED: Electrolyte Replacement Protocol FS SCH (10:45)
[2023-01-07 11:14] LABS: Magnesium 2.2 mg/dL (1.6-2.6)
[2023-01-07] MEDS: Atorvastatin Calcium 40 MG TAB PO SCH (20:08)
[2023-01-08 04:43] LABS: Hemoglobin 16.4 g/dL (14.0-18.0); Platelet Count 283 10x3/uL (130-400)
[2023-01-08 04:56] LABS: INR-International Normal Ratio 4.4; Prothrombin Time 43.9 sec (12.0-14.7)
[2023-01-08 05:05] LABS: Anion Gap 15 mmol/L (10-20); BUN (Urea Nitrogen) 28 mg/dL (8.4-25.7); Calc. Creatinine Clearance 85 mL/min (70-130); Calcium 8.9 mg/dL (7.8-10.44); Carbon Dioxide 24 mmol/L (23-31); Chloride 100 mmol/L (98-107); Estimated GFR 97; Glucose 117 mg/dL (80-115); Potassium 3.9 mmol/L (3.5-5.1); Sodium 135 mmol/L (136-145)
[2023-01-08] MEDS: Mometasone 200 MCG/Formoterol 5 MCG 120 PUFF INHALER INH SCH (07:08)
[2023-01-08] MEDS: Ipratropium/Albuterol 3 ML NEB NEB SCH ×3 (07:11→15:45)
[2023-01-08] MEDS ORDERED: Furosemide 40 MG TAB PO SCH (07:30)
[2023-01-08 08:25] VITALS: TEMP 97.1
[2023-01-08] MEDS: Empagliflozin 10 MG TAB PO SCH (08:26)
[2023-01-08] MEDS: guaiFENesin ER 600 MG TAB PO SCH (08:26)
[2023-01-08] MEDS: predniSONE 20 MG TAB PO SCH (08:26)
[2023-01-08] MEDS: Carvedilol 3.125 MG TAB PO SCH (08:26)
[2023-01-08] MEDS: Multivitamin W/ Minerals 1 TAB PO SCH (08:26)
[2023-01-08 12:17] VITALS: BP 107/70
[2023-01-08] MEDS ORDERED: Warfarin Sodium 1.5 MG TAB PO SCH (17:00)
== END 2023-01-08 16:26 | disposition home or self-care (01) | DRG 291 ==
LOC: SUATTDRO 17:34 → ERS 17:34 → 2NO 21:16 → OBSVTOIN 01-05 17:37
PROVIDERS: ADMIT Family Medicine; ATTEND Family Medicine
DX: I50.23 Acute on chronic systolic (congestive) heart failure (principal); J96.21 Acute and chronic respiratory failure with hypoxia; J44.1 Chronic obstructive pulmonary disease with (acute) exacerbation; Z79.51 Long term (current) use of inhaled steroids; Z79.01 Long term (current) use of anticoagulants; Z79.899 Other long term (current) drug therapy; Z99.81 Dependence on supplemental oxygen; Z90.49 Acquired absence of other specified parts of digestive tract; Z98.890 Other specified postprocedural states; Z87.891 Personal history of nicotine dependence; Z86.711 Personal history of pulmonary embolism
CPT/HCPCS: 36415; 71045; 80048; 80053; 83735; 83880; 84484; 85014; 85018; 85025; 85049; 85610; 93005; 94640; 96374; 96376; G0378; J1940; J7512; J7620

== ENCOUNTER 2023-06-20 14:44 | Inpatient (IN) | payer OTHER ==
[~2023-06-20 14:44] MED LIST: Iopamidol-370 76% 500 ML MDV (1 ML CHARGE) ONE
[2023-06-20 16:28] LABS: #Eosinphils 0.2 thou/uL (0.0-0.7); #Monocytes 0.4 thou/uL (0.11-0.59); #Neutrophils 6.9 thou/uL (1.40-6.50); %Basophils 0.3 % (0.0-1.0); %Eosinophils 1.9 % (0.0-10.0); %Lymphocytes 2.2 % (21.0-51.0); %Monocytes 5.3 % (0.0-10.0); Hematocrit 48.9 % (42.0-52.0); Hemoglobin 15.8 g/dL (14.0-18.0); Mean Corpuscular HGB CONC 32.3 g/dL (32.0-36.0); Mean Corpuscular Hemoglobin 32.2 pg (27.0-31.0); Mean Corpuscular Volume 99.6 fl (78.0-98.0); Mean Platelet Volume 9.2 fL (7.4-10.4); Platelet Count 232 10x3/uL (130-400); RBC Distribution Width 14.6 % (11.5-14.5); Red Blood Cell (RBC) Count 4.91 mill/uL (4.70-6.10); White Blood Cell (WBC) Count 7.7 10x3/uL (4.8-10.8)
[2023-06-20 16:53] LABS: ALT (SGPT) 7 U/L (8-55); AST (SGOT) 16 U/L (5-34); Albumin 3.7 g/dL (3.4-4.8); Alkaline Phosphatase 55 U/L (40-110); Anion Gap 15 mmol/L (10-20); BUN (Urea Nitrogen) 15 mg/dL (8.4-25.7); Bilirubin, Total 0.7 mg/dL (0.2-1.2); Calc. Creatinine Clearance 0 mL/min (70-130); Calcium 9.2 mg/dL (7.8-10.44); Carbon Dioxide 27 mmol/L (23-31); Chloride 103 mmol/L (98-107); Estimated GFR 98; Globulin 3.8 g/dL (2.4-3.5); Glucose 83 mg/dL (80-115); Lipase 11 U/L (8-78); Potassium 4.4 mmol/L (3.5-5.1); Protein, Total 7.5 g/dL (5.8-8.1); Sodium 141 mmol/L (136-145); Troponin I 0.021 ng/mL (< 0.028)
[2023-06-20] MEDS ORDERED: Acetaminophen 500 MG TAB ONE (17:01)
[2023-06-20] MEDS ORDERED: Ibuprofen 200 MG TAB ONE (18:28)
[2023-06-20 18:39] LABS: Bacteria/HPF None Seen HPF (None Seen); Bilirubin Negative (Negative); Blood, Urine Negative (Negative); CAUTI Indications for Culture Fever or rigors; Clarity Clear (Clear); Glucose, Urine (Dipstick) Normal (Negative); Ketone, Urine Trace mg/dL (Negative); Leukocyte Negative Leu/uL (Negative); Nitrite Negative (Negative); Protein, Urine (Dipstick) Negative (Neg-Trace); RBC/HPF 0-3 HPF (0-3); Squamous Epithelial 0-3 HPF (0-3); Urobilinogen Normal mg/dL (Less than 2); WBC/HPF 0-3 HPF (0-3); pH, Urine 5.5 (5.0-9.0)
[2023-06-20 18:40] LABS: Specific Gravity, Urine 1.055 (1.002-1.036)
[2023-06-20 18:41] LABS: Urine Culture Reflex No No
[2023-06-20] MEDS ORDERED: cefTRIAXone (ROCEPHIN) 1 GM VIAL ONE (18:51)
[2023-06-20] MEDS ORDERED: Sodium Chloride 0.9% 100 ML ONE (18:51)
[2023-06-20] MEDS ORDERED: Sodium Chloride 0.9% 250 ML 250 ML ONE (19:35)
[2023-06-20] MEDS ORDERED: Azithromycin 500 MG VIAL ONE (19:35)
[2023-06-20] MEDS ORDERED: Morphine 4 MG/ML VIAL ONE (20:23)
[2023-06-20] MEDS ORDERED: Metoclopramide HCl 10 MG/2 ML VIAL ONE (20:29)
[2023-06-20 20:42] LABS: INR-International Normal Ratio 1.4; Prothrombin Time 17.4 sec (12.0-14.7)
[2023-06-20 20:43] LABS: PTT 34.8 sec (22.9-36.1)
[2023-06-20 20:59] LABS: Acetaminophen 28 mcg/mL (10.0-30.0); Alcohol Less than 10.0 mg/dL (Less than 10); Magnesium 1.5 mg/dL (1.6-2.6); Salicylate Less than 8.0 mg/dL (15.0-30.0)
[2023-06-20 21:19] LABS: Actual Bicarbonate (HCO3v) 22.4 mEq/L (22-28); Base Excess -1.8 mEq/L (-2.0 to +3.0); Calcium, Ionized (venous) 1.03 mmol/L (1.16-1.32); Chloride (VBG) 105 mmol/L (98-106); Hematocrit-VBG 46 % (42.0-52.0); Hemoglobin (Hb) 15.7 g/dL (13.1-17.2); Potassium (VBG) 3.79 mmol/L (3.70-5.30); Sodium 138 mmol/L (133-146); pH (venous) 7.405 (7.32-7.43)
[2023-06-20] MEDS ORDERED: Magnesium 2 GM/50 ML BAG (IN WATER) ONE (22:20)
[2023-06-21 01:20] VITALS: BMI 20.2
[2023-06-21] MEDS ORDERED: Acetaminophen 650 MG Suppository PR PRN (02:38)
[2023-06-21] MEDS ORDERED: Acetaminophen 325 MG TAB PO PRN (02:38)
[2023-06-21] MEDS ORDERED: Ondansetron PF 4 MG/2 ML Vial IVP PRN (02:38)
[2023-06-21] MEDS ORDERED: Ondansetron ODT 4 MG TAB PO PRN (02:38)
[2023-06-21 04:18] LABS: #Eosinphils 0.1 thou/uL (0.0-0.7); #Monocytes 0.4 thou/uL (0.11-0.59); #Neutrophils 7.2 thou/uL (1.40-6.50); %Basophils 0.4 % (0.0-1.0); %Eosinophils 1.3 % (0.0-10.0); %Lymphocytes 4.8 % (21.0-51.0); %Neutrophils 88.1 % (42.0-75.0); Hematocrit 45.9 % (42.0-52.0); Hemoglobin 14.9 g/dL (14.0-18.0); Mean Corpuscular HGB CONC 32.5 g/dL (32.0-36.0); Mean Corpuscular Hemoglobin 32.3 pg (27.0-31.0); Mean Corpuscular Volume 99.4 fl (78.0-98.0); Mean Platelet Volume 9.2 fL (7.4-10.4); Platelet Count 222 10x3/uL (130-400); RBC Distribution Width 14.6 % (11.5-14.5); Red Blood Cell (RBC) Count 4.62 mill/uL (4.70-6.10); White Blood Cell (WBC) Count 8.2 10x3/uL (4.8-10.8)
[2023-06-21 04:45] LABS: Anion Gap 13 mmol/L (10-20); BUN (Urea Nitrogen) 15 mg/dL (8.4-25.7); Calc. Creatinine Clearance 100 mL/min (70-130); Calcium 8.2 mg/dL (7.8-10.44); Carbon Dioxide 23 mmol/L (23-31); Chloride 106 mmol/L (98-107); Estimated GFR 105; Glucose 83 mg/dL (80-115); Potassium 3.5 mmol/L (3.5-5.1); Sodium 138 mmol/L (136-145)
[2023-06-21] MEDS ORDERED: Electrolyte Replacement Protocol FS SCH (05:45)
[2023-06-21] MEDS: Ipratropium/Albuterol 3 ML NEB NEB PRN ×2 (06:05→18:32)
[2023-06-21 06:25] LABS: Magnesium 2.3 mg/dL (1.6-2.6)
[2023-06-21] MEDS ORDERED: Potassium Chloride 20 MEQ TAB PO SCH (09:00)
[2023-06-21] MEDS: Polyethylene Glycol 3350 17 GM Packet PO SCH (10:51)
[2023-06-21 14:33] LABS: Troponin I Less than 0.010 ng/mL (< 0.028)
[2023-06-21] MEDS: Carvedilol 3.125 MG TAB PO SCH (17:55)
[2023-06-21] MEDS ORDERED: cefTRIAXone\\ROCEPHIN 1 GM in Sodium Chloride 0.9% 100 ML IVPB SCH (18:00)
[2023-06-21] MEDS ORDERED: Doxycycline 100 MG in Sodium Chloride 0.9% 100 ML IVPB SCH (18:00)
[2023-06-21 18:22] LABS: SARS-CoV-2 NAA Rapid Test Not Detected (NotDetected)
[2023-06-21 20:35] LABS: Amphetamine Not Detected (NotDetected); Barbiturates Screen Not Detected (NotDetected); Benzodiazepine Screen Not Detected (NotDetected); Cocaine Metabolite Screen Detected (NotDetected); Methadone Not Detected (NotDetected); Methamphetamine Not Detected (NotDetected); Opiate Screen Detected (NotDetected); Oxycodone Screen Not Detected (NotDetected); Phencyclidine (PCP) Not Detected (NotDetected); THC/Cannabinoid Screen Not Detected (NotDetected); Tricyclic Screen Not Detected (NotDetected)
[2023-06-21 20:48] LABS: Legionella Urinary Ag Negative (Negative); Strep pneumo Urine Ag NEGATIVE (NEGATIVE)
[2023-06-21] MEDS: Sacubitril 24MG/Valsartan 26 MG TAB PO SCH (20:56)
[2023-06-22] MEDS: Ipratropium/Albuterol 3 ML NEB NEB PRN ×2 (00:43→07:14)
[2023-06-22 04:20] LABS: #Eosinphils 0.3 thou/uL (0.0-0.7); #Monocytes 0.7 thou/uL (0.11-0.59); #Neutrophils 4.6 thou/uL (1.40-6.50); %Basophils 0.3 % (0.0-1.0); %Eosinophils 4.1 % (0.0-10.0); %Lymphocytes 16.4 % (21.0-51.0); %Monocytes 10.9 % (0.0-10.0); %Neutrophils 67.9 % (42.0-75.0); Hematocrit 42.6 % (42.0-52.0); Hemoglobin 13.7 g/dL (14.0-18.0); Mean Corpuscular HGB CONC 32.2 g/dL (32.0-36.0); Mean Platelet Volume 9.4 fL (7.4-10.4); Platelet Count 215 10x3/uL (130-400); RBC Distribution Width 14.6 % (11.5-14.5); Red Blood Cell (RBC) Count 4.15 mill/uL (4.70-6.10); White Blood Cell (WBC) Count 6.8 10x3/uL (4.8-10.8)
[2023-06-22 04:29] LABS: Mean Corpuscular Volume 102.7 fl (78.0-98.0)
[2023-06-22 04:54] LABS: Anion Gap 9 mmol/L (10-20); BUN (Urea Nitrogen) 13 mg/dL (8.4-25.7); Calc. Creatinine Clearance 103 mL/min (70-130); Calcium 8.3 mg/dL (7.8-10.44); Carbon Dioxide 26 mmol/L (23-31); Chloride 103 mmol/L (98-107); Estimated GFR 106; Glucose 100 mg/dL (80-115); Potassium 3.6 mmol/L (3.5-5.1); Sodium 134 mmol/L (136-145)
[2023-06-22] MEDS ORDERED: FLU VACC QS2023-24(6MOS UP)/PF 60 MCG/0.5 ML SYRINGE IM ONE (09:00)
[2023-06-22] MEDS ORDERED: Doxycycline 100 MG CAP PO SCH (09:00)
[2023-06-22] MEDS: Sacubitril 24MG/Valsartan 26 MG TAB PO SCH (09:42)
[2023-06-22] MEDS: Carvedilol 3.125 MG TAB PO SCH (09:42)
[2023-06-22] MEDS: Polyethylene Glycol 3350 17 GM Packet PO SCH (09:44)
[2023-06-22 17:05] VITALS: BP 115/75; TEMP 97.9
== END 2023-06-22 17:30 | disposition home or self-care (01) | DRG 871 ==
LOC: ERS 14:44 → 2NO 22:37
PROVIDERS: ADMIT Student in an Organized Health Care Education/Training Program; ATTEND Internal Medicine Critical Care Medicine
DX: A41.9 Sepsis, unspecified organism (principal); G93.41 Metabolic encephalopathy; I50.23 Acute on chronic systolic (congestive) heart failure; J18.9 Pneumonia, unspecified organism; J96.11 Chronic respiratory failure with hypoxia; I42.9 Cardiomyopathy, unspecified; F14.20 Cocaine dependence, uncomplicated; E83.42 Hypomagnesemia; I45.81 Long QT syndrome; J44.9 Chronic obstructive pulmonary disease, unspecified; Z79.899 Other long term (current) drug therapy; Z79.51 Long term (current) use of inhaled steroids; Z90.89 Acquired absence of other organs; Z98.890 Other specified postprocedural states; Z87.891 Personal history of nicotine dependence; Z86.711 Personal history of pulmonary embolism; Z11.52 Encounter for screening for COVID-19
CPT/HCPCS: 36415; 70450; 71045; 74177; 74230; 80048; 80053; 80306; 80307; 81001; 82140; 82805; 83605; 83690; 83735; 83880; 84145; 84439; 84443; 84484; 85025; 85610; 85730; 87040; 87449; 87899; 93005; 93010; 93306; 94640; 96361; 96365; 96366; 96367; 96375; J0456; J0696; J1650; J2270; J2765; J3475; J3490; J7050; J7620; Q9967

== ENCOUNTER 2024-04-23 10:38 | Inpatient (IN) | payer OTHER ==
[2024-04-23] MEDS ORDERED: Ipratropium/Albuterol 3 ML NEB ONE (11:04)
[2024-04-23] MEDS ORDERED: Albuterol 2.5 MG (0.5 mL) NEB ONE (11:04)
[2024-04-23 11:13] LABS: Actual Bicarbonate (HCO3a) 29.2 mEq/L (22-28); Analyzer IN Cardio ER; Base Excess (BEa) 2.7 mEq/L (-2.0 to +3.0); CO2 Tension 52.9 mmHg (35.0-45.0); Calcium, Ionized (arterial) 1.15 mmol/L (1.12-1.30); Carboxyhemoglobin (COHb) 1.9 gm% (0.0-3.0); Hematocrit-ABG 41 % (42.0-52.0); O2 Tension (PaO2), arterial 62.6 mmHg (> 80.0); Potassium - ABG Lab 3.55 mmol/L (3.70-5.30)
[2024-04-23 11:16] LABS: Puncture Site Right Radial artery
[2024-04-23] MEDS ORDERED: Dexamethasone 10 MG/ML VIAL ONE (11:19)
[2024-04-23] MEDS ORDERED: LevoFLOXacin 750 mg/D5W 150 ml Premix Bag ONE (11:19)
[2024-04-23 11:22] LABS: #Basophils 0.04 10x3/uL (0.0-0.2); %Basophils 0.6 % (0.0-1.0); %Eosinophils 8.1 % (0.0-10.0); %Lymphocytes 22.6 % (21.0-51.0); %Monocytes 8.7 % (0.0-10.0); %Neutrophils 59.7 % (42.0-75.0); Hematocrit 41.4 % (42.0-52.0); Hemoglobin 13.1 g/dL (14.0-18.0); Mean Corpuscular HGB CONC 31.6 g/dL (32.0-36.0); Mean Corpuscular Hemoglobin 32.4 pg (27.0-31.0); Mean Corpuscular Volume 102.5 fL (78.0-98.0); Platelet Count 205 10x3/uL (130-400); RBC Distribution Width 14.3 % (11.5-14.5); Red Blood Cell (RBC) Count 4.04 mill/uL (4.70-6.10)
[2024-04-23 11:32] LABS: ALT (SGPT) 11 U/L (8-55); AST (SGOT) 16 U/L (5-34); Albumin 3.4 g/dL (3.4-4.8); Alkaline Phosphatase 66 U/L (40-110); Anion Gap 12 mmol/L (10-20); BUN (Urea Nitrogen) 14 mg/dL (8.4-25.7); Bilirubin, Total 0.5 mg/dL (0.2-1.2); Calc. Creatinine Clearance 0 mL/min (70-130); Calcium 8.7 mg/dL (7.8-10.44); Carbon Dioxide 29 mmol/L (23-31); Chloride 105 mmol/L (98-107); Estimated GFR 101; Globulin 3.1 g/dL (2.4-3.5); Glucose 115 mg/dL (80-115); Lipase 8 U/L (8-78); Potassium 3.6 mmol/L (3.5-5.1); Protein, Total 6.5 g/dL (5.8-8.1); Sodium 142 mmol/L (136-145)
[2024-04-23 11:38] LABS: Acetaminophen Less than 10 mcg/mL (Less than 10); Alcohol Less than 10.0 mg/dL (Less than 10); Salicylate Less than 8.0 mg/dL (Less than 8.0)
[2024-04-23 11:40] LABS: Troponin I 0.014 ng/mL (< 0.028)
[2024-04-23] MEDS ORDERED: Senokot S 8.6-50 MG TAB PO PRN (12:44)
[2024-04-23] MEDS ORDERED: Acetaminophen/Codeine 30-300mg Tablet PO PRN (12:44)
[2024-04-23] MEDS ORDERED: Bisacodyl 5 MG TAB PO PRN (12:44)
[2024-04-23] MEDS ORDERED: Acetaminophen 650 MG Suppository PR PRN (12:44)
[2024-04-23 13:51] LABS: Bacteria/HPF None Seen HPF (None Seen); Bilirubin Negative (Negative); Blood, Urine Negative (Negative); CAUTI Indications for Culture Dysuria,urgency,freq; Clarity Clear (Clear); Glucose, Urine (Dipstick) Normal (Negative); Ketone, Urine Negative (Negative); Leukocyte Negative Leu/uL (Negative); Nitrite Negative (Negative); Protein, Urine (Dipstick) Negative (Neg-Trace); RBC/HPF 0-3 HPF (0-3); Specific Gravity, Urine 1.008 (1.002-1.036); Squamous Epithelial None Seen HPF (0-3); Urobilinogen Normal mg/dL (Less than 2); WBC/HPF None Seen HPF (0-3)
[2024-04-23 13:54] LABS: Amphetamine Not Detected (NotDetected); Barbiturates Screen Not Detected (NotDetected); Benzodiazepine Screen Not Detected (NotDetected); Cocaine Metabolite Screen Detected (NotDetected); Methadone Not Detected (NotDetected); Methamphetamine Not Detected (NotDetected); Opiate Screen Not Detected (NotDetected); Oxycodone Screen Not Detected (NotDetected); Phencyclidine (PCP) Not Detected (NotDetected); THC/Cannabinoid Screen Not Detected (NotDetected); Tricyclic Screen Not Detected (NotDetected); Urine Culture Reflex No No
[2024-04-23 17:37] VITALS: BMI 19.8
[2024-04-23] MEDS: Carvedilol 3.125 MG TAB PO SCH (18:11)
[2024-04-23] MEDS: methylPREDNISolone Sod Succ 40 MG VIAL IVP SCH (18:11)
[2024-04-23] MEDS: Arformoterol 15 MCG/2 ML NEB NEB SCH (19:53)
[2024-04-23] MEDS: Sacubitril 24MG/Valsartan 26 MG TAB PO SCH (20:09)
[2024-04-23] MEDS: Apixaban 5 MG TAB PO SCH (20:09)
[2024-04-23] MEDS: Famotidine/PF 20 mg/2ml Vial SLOW IVP SCH (20:09)
[2024-04-23] MEDS: guaiFENesin ER 600 MG TAB PO SCH (20:09)
[2024-04-23] MEDS: Acetaminophen 325 MG TAB PO PRN (23:53)
[2024-04-24] MEDS: Zolpidem Tartrate 5 MG TAB PO SCH (00:57)
[2024-04-24 04:53] LABS: #Basophils Less than 0.03 10x3/uL (0.0-0.2); #Eosinphils Less than 0.03 10x3/uL (0.0-0.7); %Lymphocytes 7.4 % (21.0-51.0); %Monocytes 1.5 % (0.0-10.0); %Neutrophils 90.8 % (42.0-75.0); Hematocrit 41.7 % (42.0-52.0); Hemoglobin 13.1 g/dL (14.0-18.0); Mean Corpuscular HGB CONC 31.4 g/dL (32.0-36.0); Mean Corpuscular Hemoglobin 32.3 pg (27.0-31.0); Mean Platelet Volume 10.6 fL (7.4-10.4); Platelet Count 214 10x3/uL (130-400); RBC Distribution Width 14.1 % (11.5-14.5); Red Blood Cell (RBC) Count 4.05 mill/uL (4.70-6.10)
[2024-04-24 05:05] LABS: ALT (SGPT) 11 U/L (8-55); AST (SGOT) 15 U/L (5-34); Albumin 3.3 g/dL (3.4-4.8); Alkaline Phosphatase 74 U/L (40-110); Anion Gap 11 mmol/L (10-20); BUN (Urea Nitrogen) 19 mg/dL (8.4-25.7); Bilirubin, Total 0.3 mg/dL (0.2-1.2); Calc. Creatinine Clearance 91 mL/min (70-130); Calcium 8.7 mg/dL (7.8-10.44); Carbon Dioxide 25 mmol/L (23-31); Chloride 105 mmol/L (98-107); Estimated GFR 102; Globulin 3.1 g/dL (2.4-3.5); Glucose 140 mg/dL (80-115); Potassium 4.1 mmol/L (3.5-5.1); Protein, Total 6.4 g/dL (5.8-8.1); Sodium 137 mmol/L (136-145)
[2024-04-24] MEDS: Ipratropium/Albuterol 3 ML NEB NEB PRN (07:07)
[2024-04-24] MEDS: Guaifenesin DM 100-10/5 ML UDCUP PO PRN (09:01)
[2024-04-24 10:49] VITALS: BMI 19.8
[2024-04-24] MEDS: LevoFLOXacin 750 mg/D5W 750 MG in Premix 1 BAG IVPB SCH (13:13)
[2024-04-24] MEDS: Zolpidem Tartrate 5 MG TAB PO PRN (20:14)
[2024-04-25] MEDS: LevoFLOXacin 750 MG TAB PO SCH (06:09)
[2024-04-25] MEDS: Furosemide 20 MG TAB PO SCH (08:47)
[2024-04-25] MEDS: Carvedilol 3.125 MG TAB PO SCH (08:47)
[2024-04-25] MEDS: methylPREDNISolone Sod Succ 40 MG VIAL IVP SCH (08:48)
[2024-04-25] MEDS ORDERED: ALPRAZolam 0.25 MG TAB PO PRN (08:52)
[2024-04-25 12:09] VITALS: BP 140/79; TEMP 98
== END 2024-04-25 15:29 | disposition home or self-care (01) | DRG 189 ==
LOC: ERS 10:38 → ERHOLD 12:44 → 2SW 17:32
PROVIDERS: ADMIT Internal Medicine; ATTEND Family Medicine
DX: J96.21 Acute and chronic respiratory failure with hypoxia (principal); I50.22 Chronic systolic (congestive) heart failure; J44.1 Chronic obstructive pulmonary disease with (acute) exacerbation; I42.9 Cardiomyopathy, unspecified; I11.0 Hypertensive heart disease with heart failure; F14.10 Cocaine abuse, uncomplicated; Z71.51 Drug abuse counseling and surveillance of drug abuser; Z99.81 Dependence on supplemental oxygen; Z87.891 Personal history of nicotine dependence; Z79.52 Long term (current) use of systemic steroids; Z79.899 Other long term (current) drug therapy
CPT/HCPCS: 36415; 36600; 71045; 80053; 80306; 80307; 81001; 82805; 83605; 83690; 83880; 84484; 85025; 87040; 87428; 93005; 94640; 94660; J1100; J1956; J2919; J3490; J7611; J7620

== ENCOUNTER 2024-07-29 11:27 | Inpatient (IN) | payer OTHER ==
[2024-07-29 12:16] LABS: #Basophils 0.04 10x3/uL (0.0-0.2); %Basophils 0.2 % (0.0-1.0); %Eosinophils 0.2 % (0.0-10.0); %Monocytes 3.6 % (0.0-10.0); %Neutrophils 86.7 % (42.0-75.0); Hemoglobin 14.3 g/dL (14.0-18.0); Mean Corpuscular HGB CONC 31.1 g/dL (32.0-36.0); Mean Corpuscular Hemoglobin 31.4 pg (27.0-31.0); Mean Corpuscular Volume 101.1 fL (78.0-98.0); Mean Platelet Volume 9.3 fL (7.4-10.4); Platelet Count 233 10x3/uL (130-400); RBC Distribution Width 14.6 % (11.5-14.5); Red Blood Cell (RBC) Count 4.55 mill/uL (4.70-6.10)
[2024-07-29] MEDS ORDERED: Albuterol 2.5 MG (3 mL) NEB ONE (12:16)
[2024-07-29] MEDS ORDERED: Ipratropium Bromide 2.5 ml Neb ONE (12:16)
[2024-07-29 12:34] LABS: ALT (SGPT) 10 U/L (8-55); AST (SGOT) 13 U/L (5-34); Albumin 3.4 g/dL (3.4-4.8); Alkaline Phosphatase 69 U/L (40-110); Anion Gap 14 mmol/L (10-20); BUN (Urea Nitrogen) 12 mg/dL (8.4-25.7); Bilirubin, Total 0.7 mg/dL (0.2-1.2); Calc. Creatinine Clearance 0 mL/min (70-130); Calcium 8.7 mg/dL (7.8-10.44); Carbon Dioxide 27 mmol/L (23-31); Chloride 105 mmol/L (98-107); Estimated GFR 103; Globulin 3.6 g/dL (2.4-3.5); Glucose 97 mg/dL (80-115); Potassium 4.2 mmol/L (3.5-5.1); Sodium 142 mmol/L (136-145)
[2024-07-29 12:40] LABS: Troponin I Less than 0.010 ng/mL (< 0.028)
[2024-07-29] MEDS ORDERED: cefTRIAXone (ROCEPHIN) 1 GM VIAL ONE (13:10)
[2024-07-29] MEDS ORDERED: Sodium Chloride 0.9% 100 ML ONE (13:10)
[2024-07-29] MEDS ORDERED: Ondansetron ODT 4 MG TAB PO PRN (13:17)
[2024-07-29] MEDS ORDERED: Senokot S 8.6-50 MG TAB PO PRN (13:17)
[2024-07-29] MEDS ORDERED: Ondansetron PF 4 MG/2 ML Vial IVP PRN (13:17)
[2024-07-29] MEDS ORDERED: Calcium Carbonate 500 MG ChewTAB PO PRN (13:17)
[2024-07-29 16:15] VITALS: BMI 19.5
[2024-07-29] MEDS: Benzonatate 100 MG CAP PO PRN (18:25)
[2024-07-29] MEDS: Carvedilol 3.125 MG TAB PO SCH (18:25)
[2024-07-29] MEDS: Azithromycin 500 MG in Sodium Chloride 0.9% 250 ML 250 ML IVPB SCH ×2 (18:45→19:00)
[2024-07-29] MEDS: methylPREDNISolone Sod Succ 40 MG VIAL IVP SCH (18:46)
[2024-07-29] MEDS: Sodium Chloride 0.9% 100 ML ONE (18:56)
[2024-07-29] MEDS: Mometasone 200 MCG/Formoterol 5 MCG 120 PUFF INHALER INH SCH (18:56)
[2024-07-29 20:38] LABS: Amphetamine Not Detected (NotDetected); Barbiturates Screen Not Detected (NotDetected); Benzodiazepine Screen Not Detected (NotDetected); Cocaine Metabolite Screen Detected (NotDetected); Methadone Not Detected (NotDetected); Methamphetamine Not Detected (NotDetected); Opiate Screen Not Detected (NotDetected); Oxycodone Screen Not Detected (NotDetected); Phencyclidine (PCP) Not Detected (NotDetected); THC/Cannabinoid Screen Not Detected (NotDetected); Tricyclic Screen Not Detected (NotDetected)
[2024-07-29] MEDS: Apixaban 5 MG TAB PO SCH (21:17)
[2024-07-29] MEDS: Acetaminophen 325 MG TAB PO PRN (21:17)
[2024-07-29] MEDS: Sacubitril 24MG/Valsartan 26 MG TAB PO SCH (21:17)
[2024-07-29] MEDS: guaiFENesin ER 600 MG TAB PO SCH (21:17)
[2024-07-30 00:30] LABS: Legionella Urinary Ag Negative (Negative); Strep pneumo Urine Ag NEGATIVE (NEGATIVE)
[2024-07-30 00:55] LABS: Influenza A by NAA Not Detected (NotDetected); Influenza B by NAA Not Detected (NotDetected); SARS-CoV-2 NAA Rapid Test Not Detected (NotDetected)
[2024-07-30] MEDS: Ipratropium/Albuterol 3 ML NEB NEB PRN (01:19)
[2024-07-30 05:11] LABS: #Basophils Less than 0.03 10x3/uL (0.0-0.2); #Eosinophils Less than 0.03 10x3/uL (0.0-0.7); %Basophils 0.1 % (0.0-1.0); %Lymphocytes 3.2 % (21.0-51.0); %Monocytes 1.5 % (0.0-10.0); %Neutrophils 94.6 % (42.0-75.0); Hematocrit 43.7 % (42.0-52.0); Hemoglobin 13.5 g/dL (14.0-18.0); Mean Corpuscular HGB CONC 30.9 g/dL (32.0-36.0); Mean Corpuscular Volume 100.5 fL (78.0-98.0); Mean Platelet Volume 10.2 fL (7.4-10.4); Platelet Count 207 10x3/uL (130-400); RBC Distribution Width 14.7 % (11.5-14.5); Red Blood Cell (RBC) Count 4.35 mill/uL (4.70-6.10)
[2024-07-30 05:35] LABS: ALT (SGPT) 9 U/L (8-55); AST (SGOT) 10 U/L (5-34); Alkaline Phosphatase 65 U/L (40-110); Anion Gap 11 mmol/L (10-20); BUN (Urea Nitrogen) 16 mg/dL (8.4-25.7); Bilirubin, Total 0.4 mg/dL (0.2-1.2); Calc. Creatinine Clearance 96 mL/min (70-130); Carbon Dioxide 27 mmol/L (23-31); Chloride 106 mmol/L (98-107); Estimated GFR 105; Globulin 3.9 g/dL (2.4-3.5); Glucose 122 mg/dL (80-115); Protein, Total 6.9 g/dL (5.8-8.1); Sodium 139 mmol/L (136-145)
[2024-07-30] MEDS: Ipratropium/Albuterol 3 ML NEB NEB SCH ×2 (08:58→12:53)
[2024-07-30] MEDS: cefTRIAXone\\ROCEPHIN 1 GM in Sodium Chloride 0.9% 100 ML IVPB SCH (10:17)
[2024-07-30] MEDS: Furosemide 20 MG TAB PO SCH (10:18)
[2024-07-30] MEDS: Azithromycin 500 MG in Sodium Chloride 0.9% 250 ML 250 ML IVPB SCH (14:55)
[2024-07-31] MEDS: tiZANidine HCl 4 MG TAB PO SCH ×2 (02:05→20:56)
[2024-07-31] MEDS: Zolpidem Tartrate 5 MG TAB PO PRN (20:57)
[2024-08-01 04:59] LABS: #Basophils Less than 0.03 10x3/uL (0.0-0.2); #Eosinophils Less than 0.03 10x3/uL (0.0-0.7); %Basophils 0.1 % (0.0-1.0); %Lymphocytes 2.7 % (21.0-51.0); %Monocytes 3.1 % (0.0-10.0); %Neutrophils 93.3 % (42.0-75.0); Mean Corpuscular Hemoglobin 31.3 pg (27.0-31.0); Mean Corpuscular Volume 101.2 fL (78.0-98.0); Mean Platelet Volume 9.8 fL (7.4-10.4); Platelet Count 249 10x3/uL (130-400); RBC Distribution Width 14.8 % (11.5-14.5); Red Blood Cell (RBC) Count 4.15 mill/uL (4.70-6.10)
[2024-08-01 05:19] LABS: ALT (SGPT) 9 U/L (8-55); AST (SGOT) 9 U/L (5-34); Albumin 2.8 g/dL (3.4-4.8); Alkaline Phosphatase 67 U/L (40-110); Anion Gap 10 mmol/L (10-20); BUN (Urea Nitrogen) 26 mg/dL (8.4-25.7); Bilirubin, Total 0.2 mg/dL (0.2-1.2); Calc. Creatinine Clearance 88 mL/min (70-130); Calcium 8.9 mg/dL (7.8-10.44); Carbon Dioxide 29 mmol/L (23-31); Chloride 105 mmol/L (98-107); Estimated GFR 102; Globulin 3.3 g/dL (2.4-3.5); Glucose 137 mg/dL (80-115); Potassium 4.3 mmol/L (3.5-5.1); Protein, Total 6.1 g/dL (5.8-8.1); Sodium 140 mmol/L (136-145)
[2024-08-01 13:11] VITALS: BP 142/84; TEMP 97.3
== END 2024-08-01 13:13 | disposition home or self-care (01) | DRG 193 ==
LOC: SUATTDRO 11:27 → ERS 11:27 → ERHOLD 13:27 → 2NO 15:57
PROVIDERS: ADMIT Internal Medicine; ATTEND Internal Medicine
DX: J18.9 Pneumonia, unspecified organism (principal); J96.21 Acute and chronic respiratory failure with hypoxia; J44.1 Chronic obstructive pulmonary disease with (acute) exacerbation; I50.42 Chronic combined systolic (congestive) and diastolic (congestive) heart failure; E78.5 Hyperlipidemia, unspecified; I25.10 Atherosclerotic heart disease of native coronary artery without angina pectoris; Z86.718 Personal history of other venous thrombosis and embolism; Z86.711 Personal history of pulmonary embolism; I11.0 Hypertensive heart disease with heart failure; Z86.73 Personal history of transient ischemic attack (TIA), and cerebral infarction without residual deficits; Z79.01 Long term (current) use of anticoagulants; J43.9 Emphysema, unspecified; Z90.89 Acquired absence of other organs; Z98.890 Other specified postprocedural states; Z87.891 Personal history of nicotine dependence; Z79.899 Other long term (current) drug therapy
CPT/HCPCS: 36415; 71045; 80053; 80306; 83735; 83880; 84145; 84484; 85025; 87040; 87070; 87205; 87449; 87899; 93005; 94640; 96365; J0456; J0696; J2919; J7050; J7611; J7620; J7644

== ENCOUNTER 2025-02-15 04:50 | Emergency (ER) | payer MEDICAID ==
[2025-02-15 05:08] LABS: #Basophils 0.04 10x3/uL (0.0-0.2); #Eosinophils 0.09 10x3/uL (0.0-0.7); #Monocytes 0.63 10x3/uL (0.11-0.59); #Neutrophils 4.79 10x3/uL (1.40-6.50); %Basophils 0.6 % (0.0-1.0); %Eosinophils 1.2 % (0.0-10.0); %Lymphocytes 23.4 % (21.0-51.0); %Monocytes 8.7 % (0.0-10.0); %Neutrophils 65.8 % (42.0-75.0); Hematocrit 38.6 % (42.0-52.0); Hemoglobin 12.2 g/dL (14.0-18.0); Mean Corpuscular Hemoglobin 31.8 pg (27.0-31.0); Mean Corpuscular Volume 100.5 fL (78.0-98.0); Platelet Count 240 10x3/uL (130-400); Red Blood Cell (RBC) Count 3.84 mill/uL (4.70-6.10); White Blood Cell (WBC) Count 7.27 10x3/uL (4.8-10.8)
[2025-02-15 05:26] LABS: ALT (SGPT) 12 U/L (Less than 45); AST (SGOT) 21 U/L (11-34); Albumin 3.6 g/dL (3.1-4.5); Alkaline Phosphatase 44 U/L (40-110); Anion Gap 14 mmol/L (10-20); BUN (Urea Nitrogen) 12 mg/dL (8.4-25.7); Bilirubin, Total 0.4 mg/dL (0.3-1.2); Calc. Creatinine Clearance 0 mL/min (70-130); Calcium 8.7 mg/dL (7.8-10.44); Carbon Dioxide 28 mmol/L (23-31); Chloride 102 mmol/L (98-107); Globulin 2.9 g/dL (2.4-3.5); Glucose 93 mg/dL (80-115); Potassium 3.6 mmol/L (3.5-5.1); Sodium 140 mmol/L (136-145)
[2025-02-15 05:32] LABS: Troponin I 0.014 ng/mL (< 0.028)
[2025-02-15 05:43] LABS: Actual Bicarbonate (HCO3v) 25.7 mEq/L (22-28); Base Excess -1.3 mEq/L (-2.0 to +3.0); Calcium, Ionized (venous) 1.18 mmol/L (1.16-1.32); Chloride (VBG) 99 mmol/L (98-106); Hematocrit-VBG 39 % (42.0-52.0); Hemoglobin (Hb) 13.4 g/dL (12.6-17.4); Potassium (VBG) 3.65 mmol/L (3.70-5.30); Sodium 138 mmol/L (133-146)
[2025-02-15] MEDS ORDERED: Albuterol 2.5 MG (3 mL) NEB ONE (05:57)
== END 2025-02-15 07:36 | disposition home or self-care (01) ==
LOC: ERS 04:50
DX: J44.1 Chronic obstructive pulmonary disease with (acute) exacerbation (principal); I11.0 Hypertensive heart disease with heart failure; I50.9 Heart failure, unspecified; Z87.891 Personal history of nicotine dependence
CPT/HCPCS: 71045; 80053; 82805; 83880; 84484; 85025; 93005; 94640; 94760; J7611

== ENCOUNTER 2025-03-27 11:50 | Emergency (ER) | payer MEDICARE, OTHER ==
[2025-03-27 12:27] LABS: #Basophils 0.06 10x3/uL (0.0-0.2); #Eosinophils 0.11 10x3/uL (0.0-0.7); #Monocytes 1.00 10x3/uL (0.11-0.59); #Neutrophils 7.15 10x3/uL (1.40-6.50); %Basophils 0.6 % (0.0-1.0); %Eosinophils 1.0 % (0.0-10.0); %Lymphocytes 20.1 % (21.0-51.0); %Monocytes 9.5 % (0.0-10.0); %Neutrophils 68.3 % (42.0-75.0); Hematocrit 43.6 % (42.0-52.0); Hemoglobin 13.5 g/dL (14.0-18.0); Mean Corpuscular Hemoglobin 31.4 pg (27.0-31.0); Mean Corpuscular Volume 101.4 fL (78.0-98.0); Platelet Count 265 10x3/uL (130-400); Red Blood Cell (RBC) Count 4.30 mill/uL (4.70-6.10); White Blood Cell (WBC) Count 10.48 10x3/uL (4.8-10.8)
[2025-03-27 12:45] LABS: ALT (SGPT) 9 U/L (Less than 45); AST (SGOT) 27 U/L (11-34); Albumin 3.6 g/dL (3.1-4.5); Alkaline Phosphatase 58 U/L (40-110); Anion Gap 14 mmol/L (10-20); BUN (Urea Nitrogen) 17 mg/dL (8.4-25.7); Bilirubin, Total 0.3 mg/dL (0.3-1.2); Calc. Creatinine Clearance 0 mL/min (70-130); Calcium 8.9 mg/dL (7.8-10.44); Carbon Dioxide 28 mmol/L (23-31); Chloride 105 mmol/L (98-107); Globulin 2.9 g/dL (2.4-3.5); Glucose 98 mg/dL (80-115); Potassium 4.9 mmol/L (3.5-5.1); Sodium 142 mmol/L (136-145)
== END 2025-03-27 14:10 | disposition home or self-care (01) ==
LOC: ERS 11:50
DX: J44.1 Chronic obstructive pulmonary disease with (acute) exacerbation (principal); I11.0 Hypertensive heart disease with heart failure; I50.9 Heart failure, unspecified; Z87.891 Personal history of nicotine dependence; Z79.51 Long term (current) use of inhaled steroids; Z79.899 Other long term (current) drug therapy
CPT/HCPCS: 71045; 80053; 83605; 83880; 84484; 85025; 93005; J7620

== ENCOUNTER 2025-06-03 14:59 | Inpatient (IN) | payer OTHER, MEDICAID ==
[2025-06-03] MEDS ORDERED: Albuterol 2.5 MG (0.5 mL) NEB ONE (15:08)
[2025-06-03] MEDS ORDERED: Albuterol 2.5 MG (3 mL) NEB ONE (15:08)
[2025-06-03] MEDS ORDERED: Ipratropium Bromide 2.5 ml Neb ONE (15:12)
[2025-06-03 15:37] LABS: Actual Bicarbonate (HCO3v) 27.3 mEq/L (22-28); Analyzer IN Cardio ER; Base Excess 0.1 mEq/L (-2.0 to +3.0); Calcium, Ionized (venous) 1.08 mmol/L (1.16-1.32); Chloride (VBG) 106 mmol/L (98-106); Hematocrit-VBG 41 % (42.0-52.0); Hemoglobin (Hb) 13.9 g/dL (12.6-17.4); Potassium (VBG) 3.75 mmol/L (3.70-5.30); Sodium 142 mmol/L (133-146)
[2025-06-03 15:42] LABS: #Basophils 0.03 10x3/uL (0.0-0.2); #Eosinophils 0.05 10x3/uL (0.0-0.7); #Monocytes 0.93 10x3/uL (0.11-0.59); #Neutrophils 11.22 10x3/uL (1.40-6.50); %Basophils 0.2 % (0.0-1.0); %Eosinophils 0.4 % (0.0-10.0); %Lymphocytes 8.4 % (21.0-51.0); %Monocytes 6.9 % (0.0-10.0); %Neutrophils 83.7 % (42.0-75.0); Hematocrit 39.6 % (42.0-52.0); Hemoglobin 12.1 g/dL (14.0-18.0); Mean Corpuscular Hemoglobin 31.9 pg (27.0-31.0); Mean Corpuscular Volume 104.5 fL (78.0-98.0); Platelet Count 248 10x3/uL (130-400); Red Blood Cell (RBC) Count 3.79 mill/uL (4.70-6.10); White Blood Cell (WBC) Count 13.42 10x3/uL (4.8-10.8)
[2025-06-03 16:03] LABS: ALT (SGPT) 7 U/L (Less than 45); AST (SGOT) 13 U/L (11-34); Albumin 3.0 g/dL (3.1-4.5); Alkaline Phosphatase 44 U/L (40-110); Anion Gap 13 mmol/L (10-20); BUN (Urea Nitrogen) 19 mg/dL (8.4-25.7); Bilirubin, Total 0.4 mg/dL (0.3-1.2); Calc. Creatinine Clearance 0 mL/min (70-130); Calcium 7.3 mg/dL (7.8-10.44); Carbon Dioxide 24 mmol/L (23-31); Chloride 110 mmol/L (98-107); Globulin 2.4 g/dL (2.4-3.5); Glucose 83 mg/dL (80-115); Magnesium 2.4 mg/dL (1.6-2.6); Potassium 2.9 mmol/L (3.5-5.1); Sodium 144 mmol/L (136-145)
[2025-06-03] MEDS ORDERED: Acetaminophen 325 MG TAB PO PRN (18:16)
[2025-06-03] MEDS ORDERED: Benzonatate 100 MG CAP PO PRN (18:40)
[2025-06-03] MEDS ORDERED: Albuterol 2.5 MG (3 mL) NEB NEB PRN (18:44)
[2025-06-03] MEDS: Mometasone 200 MCG/Formoterol 5 MCG 120 PUFF INHALER INH SCH (19:33)
[2025-06-03] MEDS: guaiFENesin/DM ER PO SCH (20:54)
[2025-06-03] MEDS: Potassium Chloride 20 MEQ in Premix 1 BAG IVPB SCH (20:54)
[2025-06-03 21:54] VITALS: BMI 19.6
[2025-06-03] MEDS: Apixaban 5 MG TAB PO SCH (22:25)
[2025-06-03] MEDS: Ketorolac Tromethamine 30 MG (1 mL) VIAL IVP SCH (23:30)
[2025-06-04] MEDS: Ondansetron PF 4 MG/2 ML Vial IVP PRN (02:03)
[2025-06-04 06:40] LABS: #Basophils Less than 0.03 10x3/uL (0.0-0.2); #Eosinophils Less than 0.03 10x3/uL (0.0-0.7); #Monocytes 0.47 10x3/uL (0.11-0.59); #Neutrophils 12.45 10x3/uL (1.40-6.50); %Basophils 0.1 % (0.0-1.0); %Eosinophils 0.0 % (0.0-10.0); %Lymphocytes 3.6 % (21.0-51.0); %Monocytes 3.5 % (0.0-10.0); %Neutrophils 92.4 % (42.0-75.0); Hematocrit 39.5 % (42.0-52.0); Hemoglobin 12.3 g/dL (14.0-18.0); Mean Corpuscular Hemoglobin 31.3 pg (27.0-31.0); Mean Corpuscular Volume 100.5 fL (78.0-98.0); Platelet Count 274 10x3/uL (130-400); Red Blood Cell (RBC) Count 3.93 mill/uL (4.70-6.10); White Blood Cell (WBC) Count 13.47 10x3/uL (4.8-10.8)
[2025-06-04 06:56] LABS: Anion Gap 9 mmol/L (10-20); BUN (Urea Nitrogen) 17 mg/dL (8.4-25.7); Calc. Creatinine Clearance 115 mL/min (70-130); Calcium 8.6 mg/dL (7.8-10.44); Carbon Dioxide 27 mmol/L (23-31); Chloride 107 mmol/L (98-107); Glucose 111 mg/dL (80-115); Magnesium 2.2 mg/dL (1.6-2.6); Potassium 4.7 mmol/L (3.5-5.1); Sodium 138 mmol/L (136-145)
[2025-06-04] MEDS: FLU (Fluad Triv) 25-26 (65UP)PF 45 MCG/0.5 ML Syringe IM ONE (08:54)
[2025-06-04 16:36] VITALS: BP 152/90; TEMP 98
== END 2025-06-04 18:20 | disposition home or self-care (01) | DRG 189 ==
LOC: ERS 14:59 → ERHOLD 18:19 → SURG A 21:35
PROVIDERS: ADMIT Internal Medicine; ATTEND Internal Medicine
PROC: 3E0234Z Introduction of Serum, Toxoid and Vaccine into Muscle, Percutaneous Approach (ICD-10-PCS; principal; 2025-06-04)
DX: J96.21 Acute and chronic respiratory failure with hypoxia (principal); J44.1 Chronic obstructive pulmonary disease with (acute) exacerbation; I50.42 Chronic combined systolic (congestive) and diastolic (congestive) heart failure; J96.22 Acute and chronic respiratory failure with hypercapnia; I11.0 Hypertensive heart disease with heart failure; I25.10 Atherosclerotic heart disease of native coronary artery without angina pectoris; D64.9 Anemia, unspecified; F17.210 Nicotine dependence, cigarettes, uncomplicated; E87.6 Hypokalemia; F14.10 Cocaine abuse, uncomplicated; Z86.718 Personal history of other venous thrombosis and embolism; Z98.890 Other specified postprocedural states; Z82.49 Family history of ischemic heart disease and other diseases of the circulatory system; Z23 Encounter for immunization
CPT/HCPCS: 36415; 71045; 80048; 80053; 82805; 83735; 83880; 84484; 85025; 93005; 94660; 94664; J1885; J2405; J2919; J7611; J7644

== ENCOUNTER 2025-06-05 12:28 | Emergency (ER) | payer OTHER, MEDICAID ==
[2025-06-05 14:07] LABS: #Basophils Less than 0.03 10x3/uL (0.0-0.2); #Eosinophils Less than 0.03 10x3/uL (0.0-0.7); #Monocytes 1.09 10x3/uL (0.11-0.59); #Neutrophils 10.96 10x3/uL (1.40-6.50); %Basophils 0.2 % (0.0-1.0); %Eosinophils 0.1 % (0.0-10.0); %Lymphocytes 8.1 % (21.0-51.0); %Monocytes 8.2 % (0.0-10.0); %Neutrophils 82.9 % (42.0-75.0); Hematocrit 40.3 % (42.0-52.0); Hemoglobin 12.6 g/dL (14.0-18.0); Mean Corpuscular Hemoglobin 31.7 pg (27.0-31.0); Mean Corpuscular Volume 101.5 fL (78.0-98.0); Platelet Count 258 10x3/uL (130-400); Red Blood Cell (RBC) Count 3.97 mill/uL (4.70-6.10); White Blood Cell (WBC) Count 13.22 10x3/uL (4.8-10.8)
[2025-06-05 14:24] LABS: ALT (SGPT) 8 U/L (Less than 45); AST (SGOT) 17 U/L (11-34); Albumin 2.9 g/dL (3.1-4.5); Alkaline Phosphatase 41 U/L (40-110); Anion Gap 10 mmol/L (10-20); BUN (Urea Nitrogen) 20 mg/dL (8.4-25.7); Bilirubin, Total 0.3 mg/dL (0.3-1.2); Calc. Creatinine Clearance 0 mL/min (70-130); Calcium 8.2 mg/dL (7.8-10.44); Carbon Dioxide 30 mmol/L (23-31); Chloride 107 mmol/L (98-107); Globulin 2.6 g/dL (2.4-3.5); Glucose 74 mg/dL (80-115); Magnesium 1.8 mg/dL (1.6-2.6); Potassium 3.7 mmol/L (3.5-5.1); Sodium 143 mmol/L (136-145)
[2025-06-05 14:41] LABS: Lipase 11 U/L (8-78)
[2025-06-05] MEDS ORDERED: Azithromycin 250 MG TAB ONE (14:57)
[2025-06-05] MEDS ORDERED: Amoxicillin/Potassium Clav 875 MG TAB ONE (14:57)
== END 2025-06-05 18:10 | disposition home or self-care (01) ==
LOC: ERS 12:28
DX: J18.9 Pneumonia, unspecified organism (principal); G89.29 Other chronic pain; R10.32 Left lower quadrant pain; I11.0 Hypertensive heart disease with heart failure; I50.9 Heart failure, unspecified; J44.9 Chronic obstructive pulmonary disease, unspecified; Z55.6 Problems related to health literacy; Z79.51 Long term (current) use of inhaled steroids; Z79.01 Long term (current) use of anticoagulants; Z79.899 Other long term (current) drug therapy
CPT/HCPCS: 71045; 80053; 83690; 83735; 83880; 84484; 85025; 93005; 94760

== ENCOUNTER 2025-06-23 18:16 | Emergency (ER) | payer OTHER ==
[2025-06-23 18:35] LABS: #Basophils 0.04 10x3/uL (0.0-0.2); #Eosinophils 0.09 10x3/uL (0.0-0.7); #Monocytes 0.55 10x3/uL (0.11-0.59); #Neutrophils 4.72 10x3/uL (1.40-6.50); %Basophils 0.6 % (0.0-1.0); %Eosinophils 1.4 % (0.0-10.0); %Lymphocytes 16.5 % (21.0-51.0); %Monocytes 8.5 % (0.0-10.0); %Neutrophils 72.8 % (42.0-75.0); Hematocrit 41.6 % (42.0-52.0); Hemoglobin 12.6 g/dL (14.0-18.0); Mean Corpuscular Hemoglobin 31.3 pg (27.0-31.0); Mean Corpuscular Volume 103.2 fL (78.0-98.0); Platelet Count 242 10x3/uL (130-400); Red Blood Cell (RBC) Count 4.03 mill/uL (4.70-6.10); White Blood Cell (WBC) Count 6.48 10x3/uL (4.8-10.8)
[2025-06-23 18:50] LABS: ALT (SGPT) Less than 7 U/L (Less than 45); AST (SGOT) 15 U/L (11-34); Albumin 3.7 g/dL (3.1-4.5); Alkaline Phosphatase 55 U/L (40-110); Anion Gap 9 mmol/L (10-20); BUN (Urea Nitrogen) 17 mg/dL (8.4-25.7); Bilirubin, Total 0.3 mg/dL (0.3-1.2); CK (CPK) 72 U/L (30-200); Calc. Creatinine Clearance 0 mL/min (70-130); Calcium 8.9 mg/dL (7.8-10.44); Carbon Dioxide 32 mmol/L (23-31); Chloride 107 mmol/L (98-107); Globulin 2.7 g/dL (2.4-3.5); Glucose 99 mg/dL (80-115); Potassium 4.3 mmol/L (3.5-5.1); Sodium 144 mmol/L (136-145)
[2025-06-23 18:55] LABS: Actual Bicarbonate (HCO3v) 30.4 mEq/L (22-28); Base Excess 2.2 mEq/L (-2.0 to +3.0); Calcium, Ionized (venous) 1.17 mmol/L (1.16-1.32); Chloride (VBG) 103 mmol/L (98-106); Hematocrit-VBG 42 % (42.0-52.0); Hemoglobin (Hb) 14.2 g/dL (12.6-17.4); Potassium (VBG) 4.11 mmol/L (3.70-5.30); Sodium 143 mmol/L (133-146)
[2025-06-23] MEDS ORDERED: Acetaminophen 500 MG TAB ONE (19:50)
[2025-06-23] MEDS ORDERED: Carvedilol 6.25 MG TAB ONE (20:13)
== END 2025-06-23 21:53 | disposition home or self-care (01) ==
LOC: ERS 18:16
DX: T20.04XA Burn of unspecified degree of nose (septum), initial encounter (principal); I11.0 Hypertensive heart disease with heart failure; I50.9 Heart failure, unspecified; J43.9 Emphysema, unspecified; X11.0XXA Contact with hot water in bath or tub, initial encounter; Z79.899 Other long term (current) drug therapy
CPT/HCPCS: 80053; 82550; 82805; 83605; 85025; J2272; 96374

== ENCOUNTER 2025-07-03 14:53 | Inpatient (IN) | payer OTHER, MEDICAID ==
[2025-07-03 15:20] LABS: #Basophils 0.05 10x3/uL (0.0-0.2); #Eosinophils 0.08 10x3/uL (0.0-0.7); #Monocytes 1.15 10x3/uL (0.11-0.59); #Neutrophils 8.10 10x3/uL (1.40-6.50); %Basophils 0.5 % (0.0-1.0); %Eosinophils 0.8 % (0.0-10.0); %Lymphocytes 10.0 % (21.0-51.0); %Monocytes 10.9 % (0.0-10.0); %Neutrophils 76.9 % (42.0-75.0); Hematocrit 43.1 % (42.0-52.0); Hemoglobin 13.3 g/dL (14.0-18.0); Mean Corpuscular Hemoglobin 31.0 pg (27.0-31.0); Mean Corpuscular Volume 100.5 fL (78.0-98.0); Platelet Count 304 10x3/uL (130-400); Red Blood Cell (RBC) Count 4.29 mill/uL (4.70-6.10); White Blood Cell (WBC) Count 10.52 10x3/uL (4.8-10.8)
[2025-07-03] MEDS ORDERED: Albuterol 2.5 MG (3 mL) NEB ONE (15:21)
[2025-07-03 15:45] LABS: ALT (SGPT) 10 U/L (Less than 45); AST (SGOT) 23 U/L (11-34); Albumin 3.5 g/dL (3.1-4.5); Alkaline Phosphatase 80 U/L (40-110); Anion Gap 12 mmol/L (10-20); BUN (Urea Nitrogen) 13 mg/dL (8.4-25.7); Bilirubin, Total 0.1 mg/dL (0.3-1.2); Calc. Creatinine Clearance 0 mL/min (70-130); Calcium 8.3 mg/dL (7.8-10.44); Carbon Dioxide 29 mmol/L (23-31); Chloride 104 mmol/L (98-107); Globulin 3.5 g/dL (2.4-3.5); Glucose 126 mg/dL (80-115); Potassium 3.8 mmol/L (3.5-5.1); Sodium 141 mmol/L (136-145)
[2025-07-03] MEDS ORDERED: Ondansetron PF 4 MG/2 ML Vial IVP PRN (18:58)
[2025-07-03] MEDS ORDERED: cefTRIAXone (ROCEPHIN) 1 GM VIAL ONE (21:03)
[2025-07-03] MEDS: cefTRIAXone\\ROCEPHIN 1 GM in Sodium Chloride 0.9% 100 ML IVPB SCH (21:04)
[2025-07-04 04:09] LABS: #Basophils Less than 0.03 10x3/uL (0.0-0.2); #Eosinophils Less than 0.03 10x3/uL (0.0-0.7); #Monocytes 0.34 10x3/uL (0.11-0.59); #Neutrophils 8.77 10x3/uL (1.40-6.50); %Basophils 0.1 % (0.0-1.0); %Eosinophils 0.0 % (0.0-10.0); %Lymphocytes 3.3 % (21.0-51.0); %Monocytes 3.6 % (0.0-10.0); %Neutrophils 92.6 % (42.0-75.0); Hematocrit 44.3 % (42.0-52.0); Hemoglobin 14.1 g/dL (14.0-18.0); Mean Corpuscular Hemoglobin 31.3 pg (27.0-31.0); Mean Corpuscular Volume 98.2 fL (78.0-98.0); Platelet Count 312 10x3/uL (130-400); Red Blood Cell (RBC) Count 4.51 mill/uL (4.70-6.10); White Blood Cell (WBC) Count 9.47 10x3/uL (4.8-10.8)
[2025-07-04 04:33] LABS: Anion Gap 8 mmol/L (10-20); BUN (Urea Nitrogen) 15 mg/dL (8.4-25.7); Calc. Creatinine Clearance 0 mL/min (70-130); Calcium 8.8 mg/dL (7.8-10.44); Carbon Dioxide 29 mmol/L (23-31); Chloride 104 mmol/L (98-107); Glucose 122 mg/dL (80-115); Potassium 4.1 mmol/L (3.5-5.1); Sodium 137 mmol/L (136-145)
[2025-07-04 05:39] VITALS: BMI 19.2
[2025-07-04] MEDS: Apixaban 5 MG TAB PO SCH (06:53)
[2025-07-04] MEDS: Sacubitril 24MG/Valsartan 26 MG TAB PO SCH (06:54)
[2025-07-04] MEDS: Mometasone 200 MCG/Formoterol 5 MCG 120 PUFF INHALER INH SCH (07:15)
[2025-07-04] MEDS: Furosemide 20 MG TAB PO SCH (08:33)
[2025-07-04] MEDS: Aspirin 81 mg Enteric Coated Tablet PO SCH (08:33)
[2025-07-04 10:32] LABS: Cocaine Metabolite Screen PRELIM POSITIVE (Negative); THC/Cannabinoid Screen Negative (Negative); Tricyclic Screen Negative (Negative)
[2025-07-04] MEDS: Guaifenesin DM 100-10/5 ML UDCUP PO PRN (11:58)
[2025-07-04] MEDS: Acetaminophen 325 MG TAB PO PRN (12:16)
[2025-07-04] MEDS: Melatonin 3 MG TAB PO PRN (21:08)
[2025-07-04 22:47] VITALS: BMI 19.2
[2025-07-05] MEDS: Magnesium 2 GM/50 ML(in water) 2 GM in Premix 1 BAG IVPB SCH (01:11)
[2025-07-06 16:52] VITALS: BP 164/89; TEMP 97.8
[2025-07-06] MEDS ORDERED: PNEUMOC 20-VAL CONJ-DIP CRM/PF 0.5 ML SYRINGE IM ONE (19:30)
== END 2025-07-06 18:30 | disposition home or self-care (01) | DRG 191 ==
LOC: ERS 14:53 → ERHOLD 16:32 → PCU 22:46
PROVIDERS: ADMIT Internal Medicine; ATTEND Internal Medicine
DX: J44.1 Chronic obstructive pulmonary disease with (acute) exacerbation (principal); I50.42 Chronic combined systolic (congestive) and diastolic (congestive) heart failure; I5A Non-ischemic myocardial injury (non-traumatic); I25.10 Atherosclerotic heart disease of native coronary artery without angina pectoris; I11.0 Hypertensive heart disease with heart failure; D64.9 Anemia, unspecified; F14.10 Cocaine abuse, uncomplicated; R09.02 Hypoxemia; Z86.718 Personal history of other venous thrombosis and embolism; Z79.01 Long term (current) use of anticoagulants; Z90.89 Acquired absence of other organs; Z98.890 Other specified postprocedural states; Z82.49 Family history of ischemic heart disease and other diseases of the circulatory system; Z87.891 Personal history of nicotine dependence; Z79.899 Other long term (current) drug therapy
CPT/HCPCS: 36415; 71045; 80048; 80053; 80306; 83880; 84484; 85025; 93005; 94640; 94660; 94760; J0696; J2272; J2919; J3475; J7611